=== PATIENT | female | born 1965 | race Caucasian/White ===

== ENCOUNTER 2016-09-01 23:00 | Observation (INO) ==
--- NOTE | 2016-09-02 01:12 | Emergency Department Note ---
Disposition Clinical Impression: Pancreatitis Qualifiers: Chronicity: chronic Pancreatitis type: unspecified pancreatitis type Qualified Code(s): K86.1 - Other chronic pancreatitis Disposition: Admitted As Inpatient Condition: Good Abdominal Pain HPI - General Chief Complaint: ED Abdominal Pain Stated Complaint: VOMITING/DIARRHEA Source: patient Mode of arrival: private vehicle Limitations: no limitations Nursing Notes Reviewed: Yes Vital Signs Reviewed: Yes - History of Present Illness HPI Narrative: Patient presents to the ED complaining of nausea, vomiting, diarrhea and abdominal pain. Symptoms have been intermittent over the past 2 weeks. Abdominal pain is a cramping intermittent fluctuating pain in the epigastrium that radiates to her back. She currently rates as a 7 out of 10. States that she has vomiting and diarrhea after every time she tries to eat or drink. She reports up to 5 episodes of emesis per day. Denies any fever or chills. No urinary symptoms. She is coming in tonight because her blood pressure has been low over the past 2 days and she is now lightheaded and feels dehydrated. She has a history of recurrent pancreatitis ever since having gastric bypass surgery several years ago. She was last hospitalized in June at [facility] for pancreatitis as this is where she had her bariatric surgery and has continued to follow-up. She was seen here the end of July for similar symptoms. Lipase was 119 at that time. She chose outpatient management and had a brief improvement. She has followed up at [facility] with gastroenterology twice since then , on the and . States her last lipase level there was 86 on August 20. She has been referred to a "pancreatic specialist" but does not have an appointment there until December 02. She had her gallbladder removed several years ago. She does not drink any alcohol. She does report history of a fatty liver. Pain Scale: 8 - Related Data Home Medications Medication Instructions Recorded Confirmed Citalopram [CeleXA] 20 mg PO DAILY 11/05/15 09/01/16 LORazepam [Ativan] 0.5 mg PO TID 11/05/15 09/01/16 Tizanidine HCl [Zanaflex] 4 mg PO BID 11/05/15 09/01/16 Albuterol Sulfate [Albuterol 1 puff IH QID 06/23/16 09/01/16 Inhaler] Aripiprazole [Abilify] 5 mg PO DAILY 06/23/16 09/01/16 BuPROPion [Wellbutrin] 300 mg PO DAILY 06/23/16 09/01/16 Clopidogrel [Plavix] 75 mg PO DAILY 06/23/16 09/01/16 Niacin [Niaspan] 1,000 mg PO DAILY 06/23/16 09/01/16 Nitroglycerin [Nitrostat] 0.4 mg SL PRN PRN 06/23/16 09/01/16 Allergies Allergy/AdvReac Type Severity Reaction Status Date / Time acetaminophen [From Fioricet] Allergy Hives Verified 11/05/15 14:41 butalbital [From Fioricet] Allergy Hives Verified 11/05/15 14:41 caffeine [From Fioricet] Allergy Hives Verified 11/05/15 14:41 [place] Allergy Hives Verified 11/05/15 14:41 phenytoin [From Dilantin] Allergy Hives Verified 11/05/15 14:41 Constitutional: Denies: fever, chills, weakness, weight change Eyes: Denies: eye pain, eye discharge, vision change ENT ED: Denies: ear pain, throat pain, dental pain, hearing loss, epistaxis, congestion, dysphagia Cardiovascular: Denies: chest pain, palpitations, dyspnea on exertion, edema, syncope Respiratory: Denies: cough, dyspnea, wheezes, hemoptysis, stridor Gastrointestinal: Reports: as per HPI, abdominal pain, nausea, vomiting. Denies : diarrhea, constipation, hematemesis, melena, hematochezia Genitourinary: Denies: dysuria, frequency, hematuria, discharge Musculoskeletal: Denies: back pain, neck pain, arthralgia, myalgia Integumentary: Denies: rash, abrasion, lesions Neurological: Denies: headache, weakness, numbness, paresthesias, confusion, abnormal gait, vertigo Psychiatric: Denies: anxiety, depression, suicidal thoughts, homicidal thoughts , auditory hallucinations, visual hallucinations Endocrine: Denies: fatigue Hematological/Lymphatic: Denies: easy bleeding, easy bruising Allergic/Immunologic: Denies: facial swelling, urticaria Abdominal Pain PMH - Past Medical History Medical history: Reports: asthma, COPD, coronary artery disease, GERD, hyperlipidemia, hypertension, myocardial infarction, renal disease, TIA, other Female Surgical History: Reports: , cholecystectomy, hysterectomy, JENIFFER/ BSO, Tonsillectomy Psychiatric history: Reports: anxiety, depression - Social History Smoking status: Never smoker Alcohol use: Reports: none Drug use: Reports: none Physical Exam - General Limitations: no limitations General appearance: alert, in no apparent distress - Head Head exam: atraumatic, normocephalic, normal inspection - Eye Eye exam: Present: normal appearance, PERRL, EOMI - ENT ENT exam: normal exam, normal oropharynx, mucous membranes moist - Neck Neck exam: Present: normal inspection, full ROM, trachea midline - Chest Chest inspection: Present: normal inspection, symmetric chest wall rise - Respiratory Respiratory exam: Present: normal lung sounds bilaterally - Cardiovascular Cardiovascular exam: Present: regular rate, normal rhythm, normal heart sounds - Abdominal Exam Abdominal exam: Present: soft, tenderness, normal bowel sounds. Absent: distention, guarding, rebound, rigidity Abdominal tenderness: Present: epigastrium, moderate - Extremities Exam Extremities exam: Present: normal inspection, full ROM. Absent: tenderness, pedal edema - Back Exam Back exam: Present: normal inspection, full ROM. Absent: tenderness, CVA tenderness (R), CVA tenderness (L) - Neurological Exam Neurological exam: Present: alert, oriented X3 - Psychiatric Psychiatric exam: Present: normal affect, normal mood - Skin Skin exam: Present: warm, dry, intact, normal color Course Course Narrative: Patient presents to the ED for two weeks of intermittent epigastric abdominal pain, nausea, vomiting and diarrhea which is consistent with symptoms of her recurrent and apparent acute on chronic pancreatitis after gastric bypass surgery several years ago. She is afebrile and nontoxic in appearance but blood pressure is low. I suspect she is likely dehydrated. We will give IV fluids along with Zofran while laboratory studies are obtained. Low suspicion for any acute surgical process and did not feel that imaging is warranted at this time. - Reevaluation(s) Reevaluation #1: Laboratory studies are notable for hypokalemia at 2.9, likely result of her vomiting and diarrhea. Lipase is slightly elevated at 119. Amylase is normal. Discussed with patient the need for potassium supplement, IV fluids and bowel rest. She is adamant that she does not want to return to [facility] but is amenable to admission here for bowel rest and symptomatic management. I spoke to Dr. Bucio who has accepted the patient for continued treatment of her pancreatitis. We will continue pain medication and IV fluids as well as potassium replacement. Time: 03:11 Vital Signs Temperature 98.8 F 09/01/16 23:01 Pulse Rate 60 09/01/16 23:01 Respiratory Rate 20 09/01/16 23:01 Blood Pressure 98/71 09/01/16 23:01 O2 Sat by Pulse Oximetry 99 09/01/16 23:01 Temperature 98.5 F 09/02/16 04:05 Pulse Rate 63 09/02/16 04:05 Respiratory Rate 14 09/02/16 04:05 Blood Pressure 115/75 09/02/16 04:05 O2 Sat by Pulse Oximetry 100 09/02/16 04:05 Oxygen Delivery Oxygen Delivery Room Air Abdominal Pain - Differential Diagnosis Differential Diagnosis: Likely: abdominal pain non-specific, gastroenteritis, pancreatitis. Unlikely: abdominal pain mimics ectopic , diverticulitis , diverticulosis - Medical Records Medical records reviewed: Yes I reviewed the patient's medical records. - Lab Data Lab results reviewed: Yes I reviewed the patient's lab results. Result diagrams: 09/02/16 01:50 09/02/16 01:50 Lab Results 09/02/16 09/02/16 09/02/16 Range/Units 01:37 01:50 01:50 WBC 9.4 (4.3-11.1) K/mcL RBC 4.20 (3.82-4.97) M/mcL Hgb 12.6 (11.5-15.4) g/dL Hct 36.8 (35.3-44.9) % MCV 87.6 (83.0-100.0) fL MCH 30.0 (28.0-33.3) pg MCHC 34.2 (31.6-35.5) g/dL RDW 12.9 (11.5-14.5) % Plt Count 366 (140-400) K/mcL MPV 9.3 L (9.4-12.4) fL Immature Gran % 0.2 (0-4) % Seg Neutrophils % 64.8 % Lymphocytes % 29.1 % Monocytes % 3.8 % Eosinophils % 1.2 % Basophils % 0.9 % Neutrophils # 6.1 (1.6-8.9) K/mcL Lymphocytes # 2.7 (0.6-4.6) K/mcL Monocytes # 0.4 (0.0-1.3) K/mcL Eosinophils # 0.1 (0.0-0.6) K/mcL Basophils # 0.1 (0.0-0.2) K/mcL Sodium 140 (136-145) mEq/L Potassium 2.9 L (3.5-4.5) mEq/L Chloride 99 (98-109) mEq/L Carbon Dioxide 26 (19-29) mEq/L BUN 12 (7-20) mg/dL Creatinine 0.90 (0.57-1.11) mg/dL Est GFR ( Amer) > 60 (> 60) Est GFR (Non-Af Amer) > 60 (> 60) BUN/Creatinine Ratio 13 (6-26) Glucose 91 (70-99) mg/dL Calculated Osmolality 289 (280-300) Calcium 9.5 (8.6-10.8) mg/dL Total Bilirubin 0.4 (0.2-1.2) mg/dL AST 24 (5-34) Units/L ALT 24 (0-55) Units/L Alkaline Phosphatase 75 (38-126) Units/L Serum Total Protein 7.5 (6.0-8.3) g/dL Albumin 4.4 (3.5-5.0) g/dL Globulin 3.1 (2.4-3.5) g/dL Albumin/Globulin Ratio 1.4 (1.1-2.2) Amylase 73 (25-125) Units/L Lipase 119 H (8-78) Units/L Urine Color Straw (Yellow) Urine Clarity Clear (Clear) Urine pH 5.5 (5.0-8.0) pH Units Ur Specific [place] <= 1.005 L (1.010-1.025) Urine Protein Negative (Neg-Trace) mg/dL Urine Glucose (UA) Normal (Normal) mg/dL Urine Ketones Negative (Negative) mg/dL Urine Blood Negative (Negative) Urine Nitrite Negative (Negative) Urine Bilirubin Negative (Negative) Urine Urobilinogen Normal (Normal) mg/dL Ur Leukocyte Esterase Negative (Negative) Ur Culture Indicated? NO (NO)
[2016-09-02] MEDS ORDERED: Ondansetron 4 MG/2 ML VIAL IV ONE (01:29)
[2016-09-02] MEDS ORDERED: 0.9 % Sodium Chloride 1,000 ML IV ONE (01:29)
[2016-09-02 01:44] LABS: Bilirubin,Urine Negative (Negative); Blood,Urine Negative (Negative); Clarity,Urine Clear (Clear); Color,Urine Straw (Yellow); Glucose,Urine (UA) Normal (Normal); Ketones,Urine Negative (Negative); Leukocyte Esterase,Urine Negative (Negative); Nitrite,Urine Negative (Negative); PH,Urine 5.5 pH Units (5.0-8.0); Protein,Urine Negative (Neg-Trace); Specific Gravity,Urine <= 1.005 (1.010-1.025); Urobilinogen,Urine Normal (Normal)
[2016-09-02 02:11] LABS: Basophils # 0.1 K/mcL (0.0-0.2); Basophils % 0.9 %; Eosinophils # 0.1 K/mcL (0.0-0.6); Eosinophils % 1.2 %; Hematocrit 36.8 % (35.3-44.9); Hemoglobin 12.6 g/dL (11.5-15.4); Immature Granulocytes % 0.2 % (0-4); Lymphocytes # 2.7 K/mcL (0.6-4.6); Lymphocytes % 29.1 %; Mean Corpuscular HGB Conc 34.2 g/dL (31.6-35.5); Mean Corpuscular Volume 87.6 fL (83.0-100.0); Mean Platelet Volume 9.3 fL (9.4-12.4); Monocytes # 0.4 K/mcL (0.0-1.3); Monocytes % 3.8 %; Neutrophils # 6.1 K/mcL (1.6-8.9); Platelet Count 366 K/mcL (140-400); Red Cell Distribution Width 12.9 % (11.5-14.5); Segmented Neutrophils % 64.8 %
[2016-09-02 02:30] LABS: Alanine Aminotransferase 24 Units/L (0-55); Albumin 4.4 g/dL (3.5-5.0); Albumin/Globulin Ratio 1.4 (1.1-2.2); Alkaline Phosphatase 75 Units/L (38-126); Amylase 73 Units/L (25-125); Aspartate Amino Transferase 24 Units/L (5-34); BUN/Creatinine Ratio 13 (6-26); Bilirubin,Total 0.4 mg/dL (0.2-1.2); Blood Urea Nitrogen 12 mg/dL (7-20); Calcium 9.5 mg/dL (8.6-10.8); Carbon Dioxide 26 mEq/L (19-29); Chloride 99 mEq/L (98-109); Globulin 3.1 g/dL (2.4-3.5); Glucose 91 mg/dL (70-99); Lipase 119 Units/L (8-78); Osmolality,Calculated 289 (280-300); Potassium 2.9 mEq/L (3.5-4.5); Sodium 140 mEq/L (136-145); Total Protein 7.5 g/dL (6.0-8.3); eGFR For African Americans > 60 (> 60); eGFR For Non-African Americans > 60 (> 60)
[2016-09-02] MEDS ORDERED: *HR* Morphine 2 MG/ML SYRINGE IVP ONE (03:06)
[2016-09-02] MEDS ORDERED: 0.9 % Sodium Chloride 1,000 ML IVC SCH ×2 (03:15→04:20)
[2016-09-02] MEDS ORDERED: *HR* Morphine 2 MG/ML SYRINGE IVP PRN ×2 (03:33→04:20)
[2016-09-02] MEDS ORDERED: Naloxone 0.4 MG/ML INJ IVP PRN ×2 (03:33→04:20)
[2016-09-02] MEDS ORDERED: Ondansetron 4 MG/2 ML VIAL IVP PRN ×3 (03:33→15:54)
[2016-09-02] MEDS: *HR* Morphine 2 MG/ML SYRINGE IVP PRN ×4 (05:28→18:59)
[2016-09-02] MEDS: *HR* Promethazine 25 MG/ML VIAL IVP PRN ×3 (05:28→18:59)
--- NOTE | 2016-09-02 15:45 | Internal Med History&Physical ---
Date of Encounter: 09/02/16 Time of Encounter: 15:05 Assessment and Plan (1) Abdominal pain with vomiting Current visit: Yes Status: Acute The etiology is not obvious. We will check stool for H. pylori. We will order MRI of the abdomen and CA 19-9. (2) Hypokalemia Current visit: Yes Status: Acute Likely secondary to vomiting. We will give supplemental potassium and monitor labs. Internal Medicine - H&P: HPI Chief complaint: Vomiting and abdominal pain Admitted From: Home Plans for Post Hospital Care: Home History of present illness: Ms. Goodrich is a 50 year old female who came to emergency room stating she had onset 5-6 days earlier of vomiting and epigastric abdominal pain that radiated to her back. She had multiple episodes of vomiting but denies hematemesis. She was evaluated in emergency room and admitted to [facility] floor for ongoing care needs. She states she has had multiple similar episodes since January 2016, occurring on average every 2-3 weeks and persisting for 5-6 days. She was hospitalized at [facility] June 2016 for this problem. She reports an EGD showed no significant pathology. She reports having a CT of the abdomen at [facility] without significant abnormalities found. She was told she had "pancreatitis" at [facility] but no specific etiology was mentioned. She has also been diagnosed with esophageal dysmotility disorder. She had remote cholecystectomy. She has NAFLD and states she drank alcohol heavily in the past but has not had a drink for 3 years. She had gastric bypass surgery July 2014 with weight decreasing from 270 to 140. She reports she is still losing weight. She was told she had a bile leak after her gastric bypass surgery but no surgical correction was needed. She had a colonoscopy at [facility] 2014 with polyps found. She had polypectomy performed. Past Med Surg Social Fam HX - Past Medical History Medical history: asthma, COPD, coronary artery disease, GERD, hyperlipidemia, hypertension, myocardial infarction, renal disease, TIA, other Psychiatric history: anxiety, depression - Past Surgical History Surgical History: , cholecystectomy, hysterectomy, orthopedic, other, other - Social History Smoking Status: Never smoker Smokeless Tobacco Status: Yes Alcohol use: none Drug use: none - Family History Mother Living Status: Age at : 60 Cause of : Esophageal cancer Hx Family Cardiac Disorders: No Hx Family Respiratory Disorders: Yes (asthma) Hx Family Cancer: Yes (esophageal) Hx Family GI Disorders: No Hx Family Genitourinary Disorders: No Hx Family Endocrine Disorder: No Hx Family Musculoskeletal Disorders: No Hx Family Neuromuscular Disorders: No Hx Family Neurologic Disorders: No Hx Family HEENT Disorders: No Hx Family Autoimmune Disorders: No Hx Family Reproductive Disorders: No Hx Family Psychosocial Disorders: Yes (anxiety and depression) Hx Family Medical Disorders: No Internal Medicine - H&P: Meds Citalopram [CeleXA] 20 mg PO DAILY 11/05/15 [History] LORazepam [Ativan] 0.5 mg PO TID 11/05/15 [History] Tizanidine HCl [Zanaflex] 4 mg PO BID 11/05/15 [History] Albuterol Sulfate [Albuterol Inhaler] 1 puff IH QID 06/23/16 [History] Aripiprazole [Abilify] 5 mg PO DAILY 06/23/16 [History] BuPROPion [Wellbutrin] 300 mg PO DAILY 06/23/16 [History] Clopidogrel [Plavix] 75 mg PO DAILY 06/23/16 [History] Niacin [Niaspan] 1,000 mg PO DAILY 06/23/16 [History] Nitroglycerin [Nitrostat] 0.4 mg SL PRN PRN 06/23/16 [History] Allergies acetaminophen [From Fioricet] Allergy (Verified 11/05/15 14:41) Hives butalbital [From Fioricet] Allergy (Verified 11/05/15 14:41) Hives caffeine [From Fioricet] Allergy (Verified 11/05/15 14:41) Hives [place] Allergy (Verified 11/05/15 14:41) Hives phenytoin [From Dilantin] Allergy (Verified 11/05/15 14:41) Hives All Systems PM: A 10-system review of systems was performed and is negative for pertinent findings except as documented above in the HPI. Review of systems: Gen.: She has had weight decline as per above Cardiovascular: She claims she had myocardial infarction in 2008. She claims a stress test was done afterward which showed no significant ischemia and no intervention was done. She denies hypertension heart failure DVT or pulmonary embolus Respiratory: She smoked minimally is an early adult and has no known chronic lung disease GI: As per history of present illness : She reports right kidney atrophy and chronic kidney disease stage III. She denies other kidney or bladder disorders. Neurologic: She claims she had a stroke 2004 with right leg weakness. She reports the weakness has completely resolved now. She has had no further large distribution strokes. She states she had childhood seizures Endocrine: She has history of hyperlipidemia. She has history of DM 2 but she does not take medication since she had significant weight loss. She denies thyroid disease Hematology/oncology: She denies blood disorders cancers or anemia Psychiatric: She has anxiety and depression but denies other mental health issues [place] skeletal: She denies arthritis gout or other bone joint or muscle disorders. - Constitutional Vitals: Temp Pulse Resp BP Pulse Ox 97.8 F 63 16 87/44 99 09/02/16 11:26 09/02/16 11:26 09/02/16 11:26 09/02/16 11:09/02/16 11:26 Exam: General: She is well-developed well-nourished female who appears in no severe distress at present time. HEENT: Head is atraumatic and normocephalic. Eyes: EOMI. There is no scleral icterus. Mouth: Mucosa is moist. Neck: Supple and nontender. There is no thyromegaly or adenopathy noted. Heart: Regular without murmurs gallops or ectopics. Lungs: No wheezes or crackles are heard. Abdomen: There is mild tenderness to mild to moderate palpation in the mid abdominal area. No masses or guarding are noted. Extremities: There is no cyanosis edema or clubbing noted. Dorsalis pedis and posttibial pulses are 1-2 over 2 bilaterally. Neurologic: Mental status: She is talkative and a good historian. Cranial nerves: Smile is symmetric. Forehead wrinkles bilaterally. Tongue protrudes midline. EOMI. Motor: There is no pronator drift. Cerebellar: Finger to nose intact bilaterally. Skin: Warm and dry Internal Med - H&P Results - Labs CBC & Chem 7: 09/02/16 01:50 09/02/16 01:50 - VTE Reasons for not Prescribing Prophylaxis: Treatment not Indicated - Low risk for VTE
[2016-09-02] MEDS: 0.45 % Sodium Chloride w/KCl 20 MEQ/1,000 ML MLS IVC SCH (15:57)
[2016-09-02] MEDS: *HR* HYDROmorphone (PF) 1 MG/ML SYRINGE IVP PRN (22:11)
[2016-09-03] MEDS: *HR* HYDROmorphone (PF) 1 MG/ML SYRINGE IVP PRN ×2 (01:33→08:39)
[2016-09-03] MEDS: 0.45 % Sodium Chloride w/KCl 20 MEQ/1,000 ML MLS IVC SCH (04:05)
[2016-09-03 07:07] LABS: Alanine Aminotransferase 92 Units/L (0-55); Albumin 3.3 g/dL (3.5-5.0); Albumin/Globulin Ratio 1.4 (1.1-2.2); Alkaline Phosphatase 81 Units/L (38-126); Aspartate Amino Transferase 76 Units/L (5-34); BUN/Creatinine Ratio 9 (6-26); Bilirubin,Total 0.5 mg/dL (0.2-1.2); Blood Urea Nitrogen 7 mg/dL (7-20); Calcium 8.4 mg/dL (8.6-10.8); Carbon Dioxide 25 mEq/L (19-29); Chloride 108 mEq/L (98-109); Chol/HDL Ratio 3.5 (0-4.9); Cholesterol 163 mg/dL (< 200); Globulin 2.4 g/dL (2.4-3.5); Glucose 108 mg/dL (70-99); HDL Cholesterol 46 mg/dL (40-59); LDL Cholesterol,Calculated 94 mg/dL (0-99); Magnesium 2.2 mg/dL (1.6-2.6); Osmolality,Calculated 291 (280-300); Potassium 4.1 mEq/L (3.5-4.5); Sodium 141 mEq/L (136-145); Total Protein 5.7 g/dL (6.0-8.3); Triglycerides 117 mg/dL (< 150); eGFR For African Americans > 60 (> 60); eGFR For Non-African Americans > 60 (> 60)
[2016-09-03 07:50] VITALS: BP 121/83
--- NOTE | 2016-09-03 10:10 | Discharge Summary ---
Date of Encounter: 09/03/16 Time of Encounter: 10:00 - Discharge Diagnosis (1) Abdominal pain with vomiting Priority: Primary Status: Acute (2) Hypokalemia Priority: Secondary Status: Resolved - Discharge Medications Home Medications: Citalopram [CeleXA] 20 mg PO DAILY 11/05/15 [History] LORazepam [Ativan] 0.5 mg PO TID 11/05/15 [History] Tizanidine HCl [Zanaflex] 4 mg PO BID 11/05/15 [History] Albuterol Sulfate [Albuterol Inhaler] 1 puff IH QID 06/23/16 [History] Aripiprazole [Abilify] 5 mg PO DAILY 06/23/16 [History] BuPROPion [Wellbutrin] 300 mg PO DAILY 06/23/16 [History] Clopidogrel [Plavix] 75 mg PO DAILY 06/23/16 [History] Niacin [Niaspan] 1,000 mg PO DAILY 06/23/16 [History] Nitroglycerin [Nitrostat] 0.4 mg SL PRN PRN 06/23/16 [History] Allergies/Adverse Reactions: Allergies acetaminophen [From Fioricet] Allergy (Verified 11/05/15 14:41) Hives butalbital [From Fioricet] Allergy (Verified 11/05/15 14:41) Hives caffeine [From Fioricet] Allergy (Verified 11/05/15 14:41) Hives [place] Allergy (Verified 11/05/15 14:41) Hives phenytoin [From Dilantin] Allergy (Verified 11/05/15 14:41) Hives Procedures/tests Complete & Pending: Procedures Performed prior 72 hours Category Date Time Status MR abdomen wo/w con [MR] Routine MRI 09/02/16 15:30 Completed Date of admission: 09/02/16 03:16 Primary care physician: Sameera Crow [employer] - Patient Status Disposition: Home, Self-Care Condition: Good Functional capacity at discharge: independent ambulation Overall status at discharge: patient is progressing back to baseline - Discharge Instructions Follow Up With: Sameera Crow [Advanced Practice Nurse] - 1 week Forms: ED Satisfaction Letter, Work/School Release - Diet and Activity Activity: resume usual activities as tolerated Diet: advance to your usual diet Hospital course: Ms. Goodrich is a 50 year old female who came to emergency room stating she had onset 5-6 days earlier of vomiting and epigastric abdominal pain that radiated to her back. She had multiple episodes of vomiting but denies hematemesis. She was evaluated in emergency room and admitted to [facility] for ongoing care needs. Initial orders were written by the emergency room physician. I saw her on September 02 and performed a history and physical. I ordered abdominal MRI to further evaluate. No significant pathology was seen. A CA-19-9 was ordered with results pending at time of this dictation. Stool for H. pylori antigen was ordered but was not collected since she had no BM during hospital stay. The etiology of her recurrent abdominal pain and vomiting was not determined. IV fluids were given with supplement potassium. Her potassium was normal at 4.1 on the day of discharge. On September 03 she felt improved and stable for discharge home. She had been able tolerate clear liquids without vomiting. She will follow with her PCP Sameera Crow CNP tomorrow as scheduled. - Time Spent with Patient Total time spent providing and/or coordinating discharge services: - Constitutional Vitals: Temp Pulse Resp BP Pulse Ox 98.7 F 55 16 121/83 100 09/03/16 07:49 09/03/16 07:49 09/03/16 07:49 09/03/16 07:49 09/03/16 07:49 - VTE Reasons for not Prescribing Prophylaxis: Treatment not Indicated - Low risk for VTE
== END 2016-09-03 10:36 | disposition home or self-care (01) ==
LOC: INPPIK 23:00 → EMEROOPIK 23:00 → INPPIK 09-02 03:29
PROVIDERS: ADMIT Internal Medicine; ATTEND Internal Medicine

== ENCOUNTER 2017-04-17 02:14 | Inpatient (IN) ==
--- NOTE | 2017-04-17 02:22 | Emergency Department Note ---
Disposition Clinical Impression: Pancreatitis Qualifiers: Chronicity: acute Pancreatitis type: unspecified pancreatitis type Acute pancreatitis complication: no infection or necrosis Qualified Code(s): K85.90 - Acute pancreatitis without necrosis or infection, unspecified Disposition: Admitted As Inpatient Condition: Good Time of Disposition: 03:30 Abdominal Pain HPI - General Chief Complaint: ED Abdominal Pain Stated Complaint: RUQ abdominal pain, N&V, diarrhea Time Seen by Provider: 04/17/17 02:20 Source: patient Mode of arrival: ambulatory Limitations: no limitations Nursing Notes Reviewed: Yes Vital Signs Reviewed: Yes - History of Present Illness HPI Narrative: Patient complains of abdominal pain for the past 2 days. She has medicine for pain and nausea, bu she keeps throwing it up. She says this feels like her pancreatitis. She has not had a fever. She denies any urinary symptoms or diarrhea Pt Subjective Complaint: abdominal pain Onset (ago): day(s) (2) Consistency: constant Location: RUQ, epigastric Pain Severity: moderate Quality: cramping, stabbing Radiation: none Migration to: no migration Improves with: nothing Worsens with: nothing Associated symptoms: Reports: nausea, vomiting - Related Data Home Medications Medication Instructions Recorded Confirmed Tizanidine HCl [Zanaflex] 4 mg PO BID 11/05/15 03/08/17 Albuterol Sulfate [Albuterol 1 puff IH QID 06/23/16 03/08/17 Inhaler] BuPROPion [Wellbutrin] 300 mg PO DAILY 06/23/16 03/08/17 Clopidogrel [Plavix] 75 mg PO DAILY 06/23/16 03/08/17 Niacin [Niaspan] 1,000 mg PO DAILY 06/23/16 03/08/17 Nitroglycerin [Nitrostat] 0.4 mg SL PRN PRN 06/23/16 03/08/17 Previous Rx's Medication Instructions Recorded Promethazine [Phenergan] 25 mg RC Q6HR #30 supp.rect 11/03/16 Lansoprazole [Prevacid] 30 mg PO DAILY #20 tab.rap.dr 11/15/16 HYDROcodone/Acet 5/325 mg [[place] 1 tab PO Q6H PRN #14 tab 02/21/17 5-325 mg] Ondansetron ODT [Zofran ODT] 4 mg SL Q6HR #24 tab.rapdis 03/08/17 Promethazine Syrup [Phenergan 25 mg PO Q8HR #150 mls 03/08/17 Syrup] Promethazine [Phenergan] 25 mg PO Q6HR #20 tablet 03/08/17 Allergies Allergy/AdvReac Type Severity Reaction Status Date / Time acetaminophen [From Fioricet] Allergy Hives Verified 11/05/15 14:41 butalbital [From Fioricet] Allergy Hives Verified 11/05/15 14:41 caffeine [From Fioricet] Allergy Hives Verified 11/05/15 14:41 [place] Allergy Hives Verified 11/05/15 14:41 phenytoin [From Dilantin] Allergy Hives Verified 11/05/15 14:41 All systems ED: reviewed and negative except as stated. Review of Systems: As Per HPI Constitutional: Denies: fever, chills, weakness, weight change Eyes: Denies: eye pain, eye discharge, vision change ENT ED: Denies: ear pain, throat pain, dental pain, hearing loss, epistaxis, congestion, dysphagia Cardiovascular: Denies: chest pain, palpitations, dyspnea on exertion, edema, syncope Respiratory: Denies: cough, dyspnea, wheezes, hemoptysis, stridor Gastrointestinal: Reports: abdominal pain, nausea Genitourinary: Denies: dysuria, frequency, hematuria, discharge Musculoskeletal: Denies: back pain, neck pain, arthralgia, myalgia Integumentary: Denies: rash, abrasion, lesions Neurological: Denies: headache, weakness, numbness, paresthesias, confusion, abnormal gait, vertigo Psychiatric: Denies: anxiety, depression, suicidal thoughts, homicidal thoughts , auditory hallucinations, visual hallucinations Endocrine: Reports: as per HPI Hematological/Lymphatic: Reports: as per HPI Allergic/Immunologic: Denies: facial swelling, urticaria Abdominal Pain PMH - Past Medical History Medical history: Reports: asthma, COPD, coronary artery disease, GERD, hyperlipidemia, myocardial infarction, renal disease, seizures, TIA, other Female Surgical History: Reports: , cholecystectomy, hysterectomy, JENIFFER/ BSO, Tonsillectomy, other Psychiatric history: Reports: anxiety, depression - Social History Smoking status: Never smoker Alcohol use: Reports: none Drug use: Reports: none Physical Exam - General Limitations: no limitations General appearance: alert, in no apparent distress - Head Head exam: atraumatic, normocephalic, normal inspection - Eye Eye exam: Present: normal appearance, PERRL, EOMI - ENT ENT exam: normal exam, normal oropharynx, mucous membranes moist - Neck Neck exam: Present: normal inspection, full ROM, trachea midline - Chest Chest inspection: Present: normal inspection, symmetric chest wall rise - Respiratory Respiratory exam: Present: normal lung sounds bilaterally - Cardiovascular Cardiovascular exam: Present: regular rate, normal rhythm, normal heart sounds - Abdominal Exam Abdominal exam: Present: tenderness, normal bowel sounds - Rectal Exam Rectal exam: Present: deferred - Extremities Exam Extremities exam: Present: normal inspection - Back Exam Back exam: Present: normal inspection - Neurological Exam Neurological exam: Present: alert, oriented X3 - Psychiatric Psychiatric exam: Present: normal affect, normal mood - Skin Skin exam: Present: warm, dry, intact Course Vital Signs Temperature 98.3 F 04/17/17 02:16 Pulse Rate 82 04/17/17 02:16 Respiratory Rate 16 04/17/17 02:16 Blood Pressure 122/82 04/17/17 02:16 O2 Sat by Pulse Oximetry 100 04/17/17 02:16 Temperature 100.0 F H 04/19/17 06:46 Pulse Rate 70 04/19/17 06:46 Respiratory Rate 16 04/19/17 06:46 Blood Pressure 105/74 04/19/17 06:46 O2 Sat by Pulse Oximetry 99 04/19/17 06:46 Oxygen Delivery Oxygen Delivery Room Air Abdominal Pain - MDM Narrative Medical decision making narrative: discussed case with Dr. Bucio and he accepts admit - Lab Data Lab results reviewed: Yes I reviewed the patient's lab results. Result diagrams: 04/19/17 04:59 04/19/17 04:59 Lab Results 04/17/17 04/17/17 04/17/17 Range/Units 02:20 02:20 02:20 WBC 9.1 (4.3-11.1) K/mcL RBC 4.19 (3.82-4.97) M/mcL Hgb 12.2 (11.5-15.4) g/dL Hct 36.6 (35.3-44.9) % MCV 87.4 (83.0-100.0) fL MCH 29.1 (28.0-33.3) pg MCHC 33.3 (31.6-35.5) g/dL RDW 13.7 (11.5-14.5) % Plt Count 363 (140-400) K/mcL MPV 9.2 L (9.4-12.4) fL Immature Gran % 0.1 (0-4) % Seg Neutrophils % 53.1 % Lymphocytes % 38.0 % Monocytes % 6.3 % Eosinophils % 1.7 % Basophils % 0.8 % Neutrophils # 4.8 (1.6-8.9) K/mcL Lymphocytes # 3.4 (0.6-4.6) K/mcL Monocytes # 0.6 (0.0-1.3) K/mcL Eosinophils # 0.2 (0.0-0.6) K/mcL Basophils # 0.1 (0.0-0.2) K/mcL Sodium 139 (136-145) mEq/L Potassium 3.0 L (3.5-4.5) mEq/L Chloride 103 (98-109) mEq/L Carbon Dioxide 25 (19-29) mEq/L BUN 10 (7-20) mg/dL Creatinine 0.99 (0.57-1.11) mg/dL Est GFR ( Amer) > 60 (> 60) Est GFR (Non-Af Amer) 60 (> 60) BUN/Creatinine Ratio 10 (6-26) Glucose 82 (70-99) mg/dL POC Glucose (58-89) Calculated Osmolality 286 (280-300) Calcium 9.8 (8.6-10.8) mg/dL Magnesium (1.6-2.6) mg/dL Total Bilirubin 0.2 (0.2-1.2) mg/dL AST 46 H (5-34) Units/L ALT 46 (0-55) Units/L Alkaline Phosphatase 106 (38-126) Units/L Serum Total Protein 8.2 (6.0-8.3) g/dL Albumin 4.2 (3.5-5.0) g/dL Globulin 4.0 H (2.4-3.5) g/dL Albumin/Globulin Ratio 1.1 (1.1-2.2) Amylase 335 H (25-125) Units/L Lipase > 1200 H (8-78) Units/L Urine Color Light Yellow (Yellow) Urine Clarity Clear (Clear) Urine pH 6.5 (5.0-8.0) pH Units Ur Specific [place] 1.010 (1.010-1.025) Urine Protein Negative (Neg-Trace) mg/dL Urine Glucose (UA) Normal (Normal) mg/dL Urine Ketones Negative (Negative) mg/dL Urine Blood Negative (Negative) Urine Nitrite Negative (Negative) Urine Bilirubin Negative (Negative) Urine Urobilinogen Normal (Normal) mg/dL Ur Leukocyte Esterase Trace H (Negative) Urine Microscopic RBC 0-3 (0-3) per hpf Urine Microscopic WBC 3-5 H (0-3) per hpf Ur Squamous Epith Cells Many H (None-Few) per lpf Urine Bacteria Few (None-Few) per hpf Ur Culture Indicated? YES A (NO) 04/17/17 04/17/17 Range/Units 07:13 13:35 WBC (4.3-11.1) K/mcL RBC (3.82-4.97) M/mcL Hgb (11.5-15.4) g/dL Hct (35.3-44.9) % MCV (83.0-100.0) fL MCH (28.0-33.3) pg MCHC (31.6-35.5) g/dL RDW (11.5-14.5) % Plt Count (140-400) K/mcL MPV (9.4-12.4) fL Immature Gran % (0-4) % Seg Neutrophils % % Lymphocytes % % Monocytes % % Eosinophils % % Basophils % % Neutrophils # (1.6-8.9) K/mcL Lymphocytes # (0.6-4.6) K/mcL Monocytes # (0.0-1.3) K/mcL Eosinophils # (0.0-0.6) K/mcL Basophils # (0.0-0.2) K/mcL Sodium (136-145) mEq/L Potassium (3.5-4.5) mEq/L Chloride (98-109) mEq/L Carbon Dioxide (19-29) mEq/L BUN (7-20) mg/dL Creatinine (0.57-1.11) mg/dL Est GFR ( Amer) (> 60) Est GFR (Non-Af Amer) (> 60) BUN/Creatinine Ratio (6-26) Glucose (70-99) mg/dL POC Glucose 100 H (58-89) Calculated Osmolality (280-300) Calcium (8.6-10.8) mg/dL Magnesium 2.1 (1.6-2.6) mg/dL Total Bilirubin (0.2-1.2) mg/dL AST (5-34) Units/L ALT (0-55) Units/L Alkaline Phosphatase (38-126) Units/L Serum Total Protein (6.0-8.3) g/dL Albumin (3.5-5.0) g/dL Globulin (2.4-3.5) g/dL Albumin/Globulin Ratio (1.1-2.2) Amylase (25-125) Units/L Lipase (8-78) Units/L Urine Color (Yellow) Urine Clarity (Clear) Urine pH (5.0-8.0) pH Units Ur Specific [place] (1.010-1.025) Urine Protein (Neg-Trace) mg/dL Urine Glucose (UA) (Normal) mg/dL Urine Ketones (Negative) mg/dL Urine Blood (Negative) Urine Nitrite (Negative) Urine Bilirubin (Negative) Urine Urobilinogen (Normal) mg/dL Ur Leukocyte Esterase (Negative) Urine Microscopic RBC (0-3) per hpf Urine Microscopic WBC (0-3) per hpf Ur Squamous Epith Cells (None-Few) per lpf Urine Bacteria (None-Few) per hpf Ur Culture Indicated? (NO) - Radiology Data Radiology results reviewed: Yes I reviewed the patient's radiology results.
[2017-04-17] MEDS ORDERED: Ondansetron 4 MG/2 ML VIAL IVP ONE ×2 (02:25→03:10)
[2017-04-17] MEDS ORDERED: *HR* HYDROmorphone (PF) 1 MG/ML SYRINGE IVP ONE ×3 (02:25→03:10)
[2017-04-17] MEDS ORDERED: 0.9 % Sodium Chloride 1,000 ML IVC SCH (02:30)
[2017-04-17 02:35] LABS: Basophils # 0.1 K/mcL (0.0-0.2); Basophils % 0.8 %; Eosinophils # 0.2 K/mcL (0.0-0.6); Eosinophils % 1.7 %; Hematocrit 36.6 % (35.3-44.9); Hemoglobin 12.2 g/dL (11.5-15.4); Immature Granulocytes % 0.1 % (0-4); Lymphocytes # 3.4 K/mcL (0.6-4.6); Mean Corpuscular HGB Conc 33.3 g/dL (31.6-35.5); Mean Corpuscular Hemoglobin 29.1 pg (28.0-33.3); Mean Corpuscular Volume 87.4 fL (83.0-100.0); Mean Platelet Volume 9.2 fL (9.4-12.4); Monocytes # 0.6 K/mcL (0.0-1.3); Monocytes % 6.3 %; Neutrophils # 4.8 K/mcL (1.6-8.9); Platelet Count 363 K/mcL (140-400); Red Blood Count 4.19 M/mcL (3.82-4.97); Red Cell Distribution Width 13.7 % (11.5-14.5); Segmented Neutrophils % 53.1 %
[2017-04-17 02:43] LABS: Bilirubin,Urine Negative (Negative); Blood,Urine Negative (Negative); Clarity,Urine Clear (Clear); Glucose,Urine (UA) Normal (Normal); Ketones,Urine Negative (Negative); Leukocyte Esterase,Urine Trace (Negative); Nitrite,Urine Negative (Negative); PH,Urine 6.5 pH Units (5.0-8.0); Protein,Urine Negative (Neg-Trace); Urobilinogen,Urine Normal (Normal)
[2017-04-17 02:44] LABS: Color,Urine Light Yellow (Yellow)
[2017-04-17 02:52] LABS: RBC,Urine 0-3 per hpf (0-3)
[2017-04-17 02:53] LABS: Alanine Aminotransferase 46 Units/L (0-55); Albumin 4.2 g/dL (3.5-5.0); Albumin/Globulin Ratio 1.1 (1.1-2.2); Alkaline Phosphatase 106 Units/L (38-126); Amylase 335 Units/L (25-125); Aspartate Amino Transferase 46 Units/L (5-34); BUN/Creatinine Ratio 10 (6-26); Bacteria,Urine Few per hpf (None-Few); Bilirubin,Total 0.2 mg/dL (0.2-1.2); Blood Urea Nitrogen 10 mg/dL (7-20); Calcium 9.8 mg/dL (8.6-10.8); Carbon Dioxide 25 mEq/L (19-29); Chloride 103 mEq/L (98-109); Glucose 82 mg/dL (70-99); Lipase > 1200 Units/L (8-78); Osmolality,Calculated 286 (280-300); Sodium 139 mEq/L (136-145); Squamous Epithelial Cell,Urine Many per lpf (None-Few); Total Protein 8.2 g/dL (6.0-8.3); eGFR For African Americans > 60 (> 60); eGFR For Non-African Americans 60 (> 60)
[2017-04-17] MEDS: *HR* Promethazine 25 MG/ML VIAL IVP PRN ×5 (04:12→21:58)
[2017-04-17] MEDS: *HR* HYDROmorphone (PF) 1 MG/ML SYRINGE IVP PRN ×8 (04:19→21:59)
[2017-04-17] MEDS ORDERED: Ondansetron 4 MG/2 ML VIAL IVP PRN (06:13)
[2017-04-17] MEDS: 0.45 % Sodium Chloride w/KCl 20 MEQ/1,000 ML MLS IVC SCH ×2 (07:11→17:06)
--- NOTE | 2017-04-17 11:49 | Internal Med History&Physical ---
Date of Encounter: 04/17/17 Time of Encounter: 11:15 Assessment and Plan (1) Pancreatitis Current visit: Yes Status: Acute Etiology not obvious. She feels significantly improved. Will continue with IV fluids and give antiemetics and analgesics when necessary Qualifiers: Chronicity: acute Pancreatitis type: unspecified pancreatitis type Acute pancreatitis complication: no infection or necrosis Qualified Code(s): K85.90 - Acute pancreatitis without necrosis or infection, unspecified (2) Hypokalemia Current visit: No Status: Acute Probably secondary to vomiting and diarrhea. Continue IV fluids with supplemental potassium. We will advance diet as tolerated. Recheck labs in a.. Internal Medicine - H&P: HPI Chief complaint: Abdominal pain, vomiting, diarrhea Admitted From: Home Plans for Post Hospital Care: Home History of present illness: Ms. Goodrich is a 51 year old female who came to emergency room stating she had onset of vomiting and diarrhea with right upper quadrant and epigastric discomfort the evening of April 14. She had approximately 5 episodes of vomiting and diarrhea over the next 2 days. She came to emergency room and was evaluated and found to have hypokalemia and elevated lipase and amylase. She was admitted to [facility] floor for ongoing care needs. She was hospitalized at [facility] August 2016 with similar complaints. An MRI of the abdomen was done which showed no significant pathology. CA 19-9 antigen returned normal. She reports multiple similar episodes since January 2016. She was hospitalized at [facility] June 2016 and reports EGD showed no pathology. She was told she had "pancreatitis" but no etiology was mentioned. She has been diagnosed with esophageal motility disorder. She has had cholecystectomy. 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 She reports no alcohol intake since approximately 2013. She had GBS July 2014 with weight decreasing from 270 to 140. Her weight is been stable since August 2016 hospitalization. She had colonoscopy 2014 with polypectomy. Past Med Surg Social Fam HX - Past Medical History Medical history: asthma, COPD, coronary artery disease, GERD, hyperlipidemia, myocardial infarction, renal disease, seizures, TIA, other Psychiatric history: anxiety, depression - Past Surgical History Surgical History: , cholecystectomy, hysterectomy - Social History Smoking Status: Never smoker Smokeless Tobacco Status: No Alcohol use: none Drug use: none - Family History Mother Living Status: Hx Family Cardiac Disorders: No Hx Family Respiratory Disorders: Yes (asthma) Hx Family Cancer: Yes (esophageal) Hx Family GI Disorders: No Hx Family Endocrine Disorder: No Hx Family Neuromuscular Disorders: No Hx Family Neurologic Disorders: No Hx Family HEENT Disorders: No Hx Family Autoimmune Disorders: No Internal Medicine - H&P: Meds Tizanidine HCl [Zanaflex] 4 mg PO BID 11/05/15 [History] Albuterol Sulfate [Albuterol Inhaler] 1 puff IH QID 06/23/16 [History] BuPROPion [Wellbutrin] 300 mg PO DAILY 06/23/16 [History] Clopidogrel [Plavix] 75 mg PO DAILY 06/23/16 [History] Niacin [Niaspan] 1,000 mg PO DAILY 06/23/16 [History] Nitroglycerin [Nitrostat] 0.4 mg SL PRN PRN 06/23/16 [History] Promethazine [Phenergan] 25 mg RC Q6HR #30 supp.rect 11/03/16 [Rx] Lansoprazole [Prevacid] 30 mg PO DAILY #20 tab.rap. 11/15/16 [Rx] HYDROcodone/Acet 5/325 mg [[place] 5-325 mg] 1 tab PO Q6H PRN #14 tab 02/21/17 [Rx ] Ondansetron ODT [Zofran ODT] 4 mg SL Q6HR #24 tab.rapdis 03/08/17 [Rx] Promethazine Syrup [Phenergan Syrup] 25 mg PO Q8HR #150 mls 03/08/17 [Rx] Promethazine [Phenergan] 25 mg PO Q6HR #20 tablet 03/08/17 [Rx] 3 Allergy/AdvReac Type Severity Reaction Status Date / Time acetaminophen [From Fioricet] Allergy Hives Verified 11/05/15 14:41 butalbital [From Fioricet] Allergy Hives Verified 11/05/15 14:41 caffeine [From Fioricet] Allergy Hives Verified 11/05/15 14:41 [place] Allergy Hives Verified 11/05/15 14:41 phenytoin [From Dilantin] Allergy Hives Verified 11/05/15 14:41 All Systems PM: A 10-system review of systems was performed and is negative for pertinent findings except as documented above in the HPI. Review of systems: Review of systems from her August 2016 hospitalization were reviewed and revised as below. Gen.: Her weight has been stable since August 2016 hospitalization Cardiovascular: She claims she had myocardial infarction in 2008. She claims a stress test was done afterward which showed no significant ischemia and no intervention was done. She denies hypertension heart failure DVT or pulmonary embolus Respiratory: She smoked minimally is an early adult and has no known chronic lung disease GI: As per history of present illness : She reports right kidney atrophy and chronic kidney disease stage III. She denies other kidney or bladder disorders. Neurologic: She claims she had a stroke 2004 with right leg weakness. She reports the weakness has completely resolved now. She has had no further large distribution strokes. She states she had childhood seizures Endocrine: She has history of hyperlipidemia. She has history of DM 2 but she does not take medication since she had significant weight loss. She denies thyroid disease Hematology/oncology: She denies blood disorders cancers or anemia Psychiatric: She has anxiety and depression but denies other mental health issues [place] skeletal: She denies arthritis gout or other bone joint or muscle disorders. - Constitutional Vitals: Temp Pulse Resp BP Pulse Ox 98.4 F 76 16 107/72 99 04/17/17 10:32 04/17/17 10:32 04/17/17 10:32 04/17/17 10:32 04/17/17 10:32 Exam: Gen.: She is a well-developed well-nourished female who appears in mild distress at present time. HEENT: Head is atraumatic and normocephalic. Eyes: EOMI. There is no scleral icterus. Mouth: Mucosa is moist. Neck: Supple and nontender. There is no thyromegaly or adenopathy noted. Heart: Regular without murmurs gallops or ectopics Lungs: No wheezes or crackles are heard. Abdomen: Bowel sounds are present but diminished. There is mild discomfort in the right upper quadrant and epigastric area to deep palpation. No masses or guarding are noted. Extremities: There is no cyanosis edema or clubbing noted. Dorsalis pedis and posterior tibial pulses are 1-2 over 2 bilaterally. Neurologic: Mental status: She is talkative and a good historian. Cranial nerves: Smile is symmetric. Forehead wrinkles bilaterally. Tongue protrudes midline. EOMI. Motor: There is no pronator drift. Cerebellar: Finger to nose is intact bilaterally. Skin: Warm and dry Internal Med - H&P Results - Labs CBC & Chem 7: 04/17/17 02:20 04/17/17 02:20
[2017-04-17] MEDS: Ondansetron 4 MG/2 ML VIAL IVP PRN ×2 (14:39→19:43)
[2017-04-18] MEDS: Ondansetron 4 MG/2 ML VIAL IVP PRN ×3 (02:52→21:30)
[2017-04-18] MEDS: 0.45 % Sodium Chloride w/KCl 20 MEQ/1,000 ML MLS IVC SCH ×3 (02:52→18:50)
[2017-04-18] MEDS: *HR* HYDROmorphone (PF) 1 MG/ML SYRINGE IVP PRN ×9 (02:52→23:28)
[2017-04-18 05:27] LABS: Basophils % 0.7 %; Eosinophils # 0.2 K/mcL (0.0-0.6); Eosinophils % 4.3 %; Hematocrit 32.7 % (35.3-44.9); Hemoglobin 10.9 g/dL (11.5-15.4); Immature Granulocytes % 0.2 % (0-4); Lymphocytes # 1.6 K/mcL (0.6-4.6); Lymphocytes % 28.9 %; Mean Corpuscular HGB Conc 33.3 g/dL (31.6-35.5); Mean Corpuscular Hemoglobin 29.5 pg (28.0-33.3); Mean Corpuscular Volume 88.6 fL (83.0-100.0); Mean Platelet Volume 9.3 fL (9.4-12.4); Monocytes # 0.2 K/mcL (0.0-1.3); Monocytes % 4.3 %; Neutrophils # 3.3 K/mcL (1.6-8.9); Platelet Count 260 K/mcL (140-400); Red Blood Count 3.69 M/mcL (3.82-4.97); Red Cell Distribution Width 14.3 % (11.5-14.5); Segmented Neutrophils % 61.6 %
[2017-04-18] MEDS: *HR* Promethazine 25 MG/ML VIAL IVP PRN ×3 (05:37→23:28)
[2017-04-18] MEDS: *HR* Enoxaparin 40 MG/0.4 ML SYRINGE SQ SCH (05:37)
[2017-04-18 05:48] LABS: Alanine Aminotransferase 725 Units/L (0-55); Albumin 3.2 g/dL (3.5-5.0); Alkaline Phosphatase 193 Units/L (38-126); Aspartate Amino Transferase 706 Units/L (5-34); BUN/Creatinine Ratio 8 (6-26); Bilirubin,Total 0.4 mg/dL (0.2-1.2); Blood Urea Nitrogen 6 mg/dL (7-20); Calcium 8.7 mg/dL (8.6-10.8); Carbon Dioxide 24 mEq/L (19-29); Chloride 107 mEq/L (98-109); Globulin 3.1 g/dL (2.4-3.5); Glucose 93 mg/dL (70-99); Lipase 70 Units/L (8-78); Osmolality,Calculated 287 (280-300); Potassium 3.8 mEq/L (3.5-4.5); Sodium 140 mEq/L (136-145); Total Protein 6.3 g/dL (6.0-8.3); eGFR For African Americans > 60 (> 60); eGFR For Non-African Americans > 60 (> 60)
--- NOTE | 2017-04-18 18:02 | Internal Med Progress Note ---
Date of Encounter: 04/18/17 Time of Encounter: 17:50 - Assessment and plan (1) Pancreatitis Current Visit: Yes Status: Acute Assessment and plan: April 18. Question if lipase lab results from yesterday and today are both accurate. CT of abdomen/pelvis in the emergency room did not show evidence of pancreatic inflammation. We will advance diet and recheck labs in a.m. Qualifiers: Chronicity: acute Pancreatitis type: unspecified pancreatitis type Acute pancreatitis complication: no infection or necrosis Qualified Code(s): K85.90 - Acute pancreatitis without necrosis or infection, unspecified (2) Hypokalemia Current Visit: No Status: Acute Assessment and plan: April 18. Resolved. Continue IV fluids with potassium. Recheck labs in a.m. (3) Elevated transaminase level Current Visit: Yes Status: Acute Assessment and plan: April 18. I told her she might have acute viral gastroenteritis with liver involvement. Will recheck labs in a.m. - Subjective Interval history: April 18. She has no new complaints. She has not vomited today. She still has some mid abdominal discomfort - Constitutional Vitals: Temp Pulse Resp BP Pulse Ox 98.4 F 94 16 103/70 97 04/18/17 16:12 04/18/17 16:12 04/18/17 16:12 04/18/17 16:12 04/18/17 16:12 Exam: She appears to be resting comfortably in bed in no acute distress. Her affect is bright and cheerful. I reviewed her medications and lab results. Internal Medicine: Result - Labs CBC & Chem 7: 04/18/17 05:00 04/18/17 05:00 Labs: Short CBC 04/18/17 Range/Units 05:00 WBC 5.4 (4.3-11.1) K/mcL Hgb 10.9 L (11.5-15.4) g/dL Hct 32.7 L (35.3-44.9) % Plt Count 260 (140-400) K/mcL Neutrophils # 3.3 (1.6-8.9) K/mcL BMP 04/18/17 05:00 Sodium 140 Potassium 3.8 Chloride 107 Carbon Dioxide 24 BUN 6 L Creatinine 0.79 Glucose 93 Calcium 8.7 Liver Function 04/18/17 Range/Units 05:00 Total Bilirubin 0.4 (0.2-1.2) mg/dL AST 706 H (5-34) Units/L ALT 725 H (0-55) Units/L Alkaline Phosphatase 193 H (38-126) Units/L Albumin 3.2 L D (3.5-5.0) g/dL Consult Discharge Plan - Plan Referrals: Sameera Crow, FOUZIA [Primary Care Provider] - 1 week
[2017-04-19] MEDS: 0.45 % Sodium Chloride w/KCl 20 MEQ/1,000 ML MLS IVC SCH (01:09)
[2017-04-19] MEDS: *HR* HYDROmorphone (PF) 1 MG/ML SYRINGE IVP PRN ×5 (02:03→11:16)
[2017-04-19 06:25] LABS: Basophils % 0.6 %; Eosinophils # 0.2 K/mcL (0.0-0.6); Eosinophils % 3.4 %; Hematocrit 30.3 % (35.3-44.9); Immature Granulocytes % 0.1 % (0-4); Lymphocytes # 2.2 K/mcL (0.6-4.6); Lymphocytes % 31.8 %; Mean Corpuscular Hemoglobin 29.5 pg (28.0-33.3); Mean Corpuscular Volume 89.4 fL (83.0-100.0); Mean Platelet Volume 9.9 fL (9.4-12.4); Monocytes # 0.4 K/mcL (0.0-1.3); Monocytes % 6.2 %; Neutrophils # 3.9 K/mcL (1.6-8.9); Platelet Count 254 K/mcL (140-400); Red Blood Count 3.39 M/mcL (3.82-4.97); Red Cell Distribution Width 14.2 % (11.5-14.5); Segmented Neutrophils % 57.9 %
[2017-04-19 06:44] LABS: BUN/Creatinine Ratio 7 (6-26); Calcium 8.6 mg/dL (8.6-10.8); Carbon Dioxide 24 mEq/L (19-29); Chloride 105 mEq/L (98-109); Glucose 107 mg/dL (70-99); Lipase 60 Units/L (8-78); Osmolality,Calculated 286 (280-300); Potassium 3.9 mEq/L (3.5-4.5); Sodium 139 mEq/L (136-145); eGFR For African Americans > 60 (> 60); eGFR For Non-African Americans > 60 (> 60)
[2017-04-19 06:45] LABS: Blood Urea Nitrogen 5 mg/dL (7-20)
[2017-04-19] MEDS: *HR* Enoxaparin 40 MG/0.4 ML SYRINGE SQ SCH (06:45)
[2017-04-19] MEDS: *HR* Promethazine 25 MG/ML VIAL IVP PRN (08:10)
[2017-04-19 10:39] VITALS: BP 94/54
[2017-04-19 10:49] LABS: Alanine Aminotransferase 417 Units/L (0-55); Albumin 2.9 g/dL (3.5-5.0); Alkaline Phosphatase 168 Units/L (38-126); Aspartate Amino Transferase 227 Units/L (5-34); BUN/Creatinine Ratio 6 (6-26); Bilirubin,Total 0.4 mg/dL (0.2-1.2); Calcium 8.5 mg/dL (8.6-10.8); Carbon Dioxide 27 mEq/L (19-29); Chloride 104 mEq/L (98-109); Globulin 2.8 g/dL (2.4-3.5); Glucose 94 mg/dL (70-99); Osmolality,Calculated 285 (280-300); Sodium 139 mEq/L (136-145); Total Protein 5.7 g/dL (6.0-8.3); eGFR For African Americans > 60 (> 60); eGFR For Non-African Americans > 60 (> 60)
[2017-04-19 10:51] LABS: Blood Urea Nitrogen 4 mg/dL (7-20)
--- NOTE | 2017-04-19 11:55 | Discharge Summary ---
Date of Encounter: 04/19/17 Time of Encounter: 11:47 - Discharge Diagnosis (1) Gastroenteritis Priority: Primary Status: Acute (2) Hypokalemia Priority: Secondary Status: Resolved (3) Elevated transaminase level Priority: Secondary Status: Acute - Discharge Medications Home Medications: Tizanidine HCl [Zanaflex] 4 mg PO BID 11/05/15 [History] Albuterol Sulfate [Albuterol Inhaler] 1 puff IH QID 06/23/16 [History] BuPROPion [Wellbutrin] 300 mg PO DAILY 06/23/16 [History] Clopidogrel [Plavix] 75 mg PO DAILY 06/23/16 [History] Niacin [Niaspan] 1,000 mg PO DAILY 06/23/16 [History] Nitroglycerin [Nitrostat] 0.4 mg SL PRN PRN 06/23/16 [History] Promethazine [Phenergan] 25 mg RC Q6HR #30 supp.rect 11/03/16 [Rx] Lansoprazole [Prevacid] 30 mg PO DAILY #20 tab.rap. 11/15/16 [Rx] HYDROcodone/Acet 5/325 mg [[place] 5-325 mg] 1 tab PO Q6H PRN #14 tab 02/21/17 [Rx ] Ondansetron ODT [Zofran ODT] 4 mg SL Q6HR #24 tab.rapdis 03/08/17 [Rx] Promethazine Syrup [Phenergan Syrup] 25 mg PO Q8HR #150 mls 03/08/17 [Rx] Promethazine [Phenergan] 25 mg PO Q6HR #20 tablet 03/08/17 [Rx] Allergies/Adverse Reactions: 3 Allergy/AdvReac Type Severity Reaction Status Date / Time acetaminophen [From Fioricet] Allergy Hives Verified 11/05/15 14:41 butalbital [From Fioricet] Allergy Hives Verified 11/05/15 14:41 caffeine [From Fioricet] Allergy Hives Verified 11/05/15 14:41 [place] Allergy Hives Verified 11/05/15 14:41 phenytoin [From Dilantin] Allergy Hives Verified 11/05/15 14:41 Date of admission: 04/17/17 18:30 Primary care physician: Sameera Crow CNP - Patient Status Disposition: Home, Self-Care Condition: Good Functional capacity at discharge: independent ambulation Overall status at discharge: patient is progressing back to baseline - Discharge Instructions Follow Up With: Sameera Crow CNP [Primary Care Provider] - 1 week - Diet and Activity Activity: resume usual activities as tolerated Diet: advance to your usual diet Hospital course: Ms. Goodrich is a 51 year old female who came to emergency room stating she had onset of vomiting and diarrhea with right upper quadrant and epigastric discomfort the evening of April 14. She had approximately 5 episodes of vomiting and diarrhea over the next 2 days. She came to emergency room and was evaluated and found to have hypokalemia and elevated lipase and amylase. She was admitted to [facility] for ongoing care needs. Initial orders were written by the emergency room physician. I saw her on April 17 and performed the history and physical. She was admitted with a diagnosis of pancreatitis although CT scan did not show pancreatic inflammation. Her lipase returned to normal the following day and I question if he initial lab lipase may have been erroneous. Repeat lipase on April 19 was again normal. She had significant rise in LFTs April 18 with AST 706 and ALT 725. These had improved significantly by the following day. She had a low-grade fever the last 24 hours of hospitalization and I felt she likely had a viral gastroenteritis as the primary cause of her symptoms. Her diet was advanced and tolerated well and she did not vomit the last 24 hours of hospitalization. She felt she was stable for discharge home on April 19. Supplemental potassium was given an hypokalemia resolved. She will be discharged home and follow with her PCP Sameera Crow CNP within 1 week. - Time Spent with Patient Total time spent providing and/or coordinating discharge services: - Constitutional Vitals: Temp Pulse Resp BP Pulse Ox 99.5 F 69 18 94/54 94 04/19/17 10:38 04/19/17 10:38 04/19/17 10:38 04/19/17 10:38 04/19/17 10:38
[2017-04-19] MEDS ORDERED: FLUARIX QUAD 2017-18 36MOS UP/PF 0.5 ML SYRINGE IM ONE (13:25)
== END 2017-04-19 13:41 | disposition home or self-care (01) | DRG 249 ==
LOC: EMEROOPIK 02:14 → INPPIK 02:14
PROVIDERS: ADMIT Internal Medicine; ATTEND Internal Medicine

== ENCOUNTER 2017-06-10 00:19 | Observation (INO) ==
--- NOTE | 2017-06-10 00:35 | Emergency Department Note ---
Disposition Clinical Impression: Abdominal pain Qualifiers: Abdominal location: right upper quadrant Qualified Code(s): R10.11 - Right upper quadrant pain Pancreatitis Qualifiers: Chronicity: acute Pancreatitis type: unspecified pancreatitis type Acute pancreatitis complication: unspecified Qualified Code(s): K85.90 - Acute pancreatitis without necrosis or infection, unspecified Disposition: Admitted As Inpatient Condition: Fair Referrals: Sameera Crow [Primary Care Provider] - Forms: ED Satisfaction Letter, Work/School Release Abdominal Pain HPI - General Chief Complaint: ED Abdominal Pain Stated Complaint: "think my chronic pancreatitis is back" Time Seen by Provider: 06/10/17 00:29 Source: patient, family Mode of arrival: private vehicle Limitations: no limitations Nursing Notes Reviewed: Yes Vital Signs Reviewed: Yes - History of Present Illness HPI Narrative: Patient reports that she has had recurrent pancreatitis as a "complication of gastric bypass". Her last episode was earlier this May. She has had 4-5 episodes of nausea and vomiting in last 24 hours with increasingly severe epigastric and right upper quadrant abdominal pain tonight. She states this does radiate to her back and is like she has had before with her pancreatitis. She reports slight diarrhea and no blood or mucus in her emesis or stool. She states after her bypass she also has malabsorption and gets home IV fluids via her left upper chest port. She denies that she has been having fever, chills, chest pain, cough or shortness of breath. She denies any alcohol or other gastric irritants or change in her regular diet. She denies weakness, dizziness or diaphoresis. She states when the pain comes on she cannot tolerate it and it she has had to come back to the emergency department. Pt Subjective Complaint: abdominal pain Onset (ago): day(s) (1) Consistency: Worsening Location: RUQ, epigastric Pain Severity: severe Pain Scale: 10 Quality: aching, dull Radiation: back Migration to: no migration Improves with: nothing Worsens with: eating, vomiting Context: history of similar episodes Associated symptoms: Reports: nausea, vomiting, diarrhea. Denies: fever, chills , constipation, dysuria, hematemesis, hematochezia, melena, hematuria, anorexia , syncope Treatments prior to arrival: none - Related Data Home Medications Medication Instructions Recorded Confirmed Tizanidine HCl [Zanaflex] 4 mg PO BID 11/05/15 06/10/17 BuPROPion [Wellbutrin] 300 mg PO DAILY 06/23/16 06/10/17 Niacin [Niaspan] 1,000 mg PO DAILY 06/23/16 06/10/17 Nitroglycerin [Nitrostat] 0.4 mg SL PRN PRN 06/23/16 06/10/17 Ondansetron [Zofran ODT] 8 mg SL Q4HR 04/29/17 06/10/17 Loratadine [Allergy Relief] 10 mg PO DAILY 05/15/17 06/10/17 Montelukast [Singulair] 10 mg PO HS 05/15/17 06/10/17 Pantoprazole Sodium 40 mg PO DAILY 05/15/17 06/10/17 Simvastatin [Zocor] 40 mg PO HS 05/15/17 06/10/17 Temazepam [Restoril] 30 mg PO HS 05/15/17 06/10/17 Venlafaxine XR (24 HR) [Effexor XR] 37.5 mg PO DAILY 05/15/17 06/10/17 Verapamil [Isoptin] 120 mg PO DAILY 05/15/17 06/10/17 rOPINIRole [Requip] 1 mg PO HS 05/15/17 06/10/17 Allergies Allergy/AdvReac Type Severity Reaction Status Date / Time acetaminophen [From Fioricet] Allergy Hives Verified 06/10/17 00:22 butalbital [From Fioricet] Allergy Hives Verified 05/15/17 13:21 caffeine [From Fioricet] Allergy Hives Verified 05/15/17 13:21 [place] Allergy Hives Verified 05/15/17 13:21 phenytoin [From Dilantin] Allergy Hives Verified 05/15/17 13:21 methocarbamol [From Robaxin] AdvReac Vomiting Verified 05/15/17 13:22 All systems ED: reviewed and negative except as stated. Abdominal Pain PMH - Past Medical History Medical history: Reports: asthma, COPD, coronary artery disease, GERD, hyperlipidemia, myocardial infarction, renal disease, seizures, TIA, other Female Surgical History: Reports: , cholecystectomy, hysterectomy, JENIFFER/ BSO, Tonsillectomy, other (Gastric bypass) Psychiatric history: Reports: anxiety, depression - Social History Smoking status: Former smoker Alcohol use: Reports: none, recent Drug use: Reports: none Physical Exam - General Limitations: no limitations General appearance: alert, anxious, in distress - Head Head exam: atraumatic, normocephalic, normal inspection - Eye Eye exam: Present: normal appearance, PERRL, EOMI. Absent: scleral icterus, conjunctival injection - ENT ENT exam: normal exam, normal oropharynx, mucous membranes moist - Neck Neck exam: Present: normal inspection, full ROM, trachea midline - Chest Chest inspection: Present: normal inspection, symmetric chest wall rise - Respiratory Respiratory exam: Present: normal lung sounds bilaterally. Absent: respiratory distress, wheezes, prolonged expiratory phase - Cardiovascular Cardiovascular exam: Present: regular rate, normal rhythm, normal heart sounds. Absent: tachycardia - Abdominal Exam Abdominal exam: Present: soft, normal bowel sounds. Absent: distention, guarding, rebound, rigidity Abdominal tenderness: Present: RUQ, epigastrium, moderate - Extremities Exam Extremities exam: Present: normal inspection, full ROM. Absent: tenderness, pedal edema - Expanded Lower Extremity Exam Neurovascular/Tendon exam: Present: normal capillary refill. Absent: motor deficit, sensory deficit, tendon deficit Gait: antalgic - Back Exam Back exam: Present: normal inspection, full ROM. Absent: tenderness, CVA tenderness (R), CVA tenderness (L) - Neurological Exam Neurological exam: Present: alert, oriented X3 - Psychiatric Psychiatric exam: Present: normal affect, normal mood - Skin Skin exam: Present: warm, dry, intact, normal color. Absent: diaphoresis, pallor Course Course Narrative: 0125: Laboratory results are discussed with Dr. Bucio. He is agreeable with observation of this patient for hydration and pain control. Verbal orders have been obtained and we are awaiting bed placement. Vital Signs Temperature 97.8 F 06/10/17 00:20 Pulse Rate 81 06/10/17 00:20 Respiratory Rate 16 06/10/17 00:20 Blood Pressure 108/67 06/10/17 00:20 O2 Sat by Pulse Oximetry 100 06/10/17 00:20 Temperature 97.8 F 06/10/17 00:20 Pulse Rate 78 06/10/17 01:07 Respiratory Rate 16 06/10/17 01:07 Blood Pressure 122/81 06/10/17 01:07 O2 Sat by Pulse Oximetry 100 06/10/17 01:07 Oxygen Delivery Oxygen Delivery Room Air Abdominal Pain - Differential Diagnosis Differential Diagnosis: Likely: abdominal pain non-specific, pancreatitis - Medical Records Medical records reviewed: Yes I reviewed the patient's medical records. EXAMINATION: MRCP 05/18/2017 12:15 pm TECHNIQUE: After initial T2 axial and coronal images, thick slab, thin slab and 3D coronal MRCP sequences were obtained without the administration of intravenous contrast. MIP images are provided for review. COMPARISON: CT on 04/17/2017 HISTORY: Chronic pancreatitis. Epigastric pain and nausea/vomiting for 1 week. FINDINGS: Image quality degraded by motion artifact on some sequences. Gallbladder: Surgically absent. Bile Ducts: No intrahepatic or extrahepatic biliary ductal dilatation. No intraductal filling defect. Common bile duct measures 5 mm. Pancreatic Duct: Not dilated. Normal anatomy. Other: Status post gastric bypass and lumbar fusion. No evidence of hepatic steatosis. No adrenal nodule. No significant ascites. No hydronephrosis. Minimal bilateral pleural effusions. MR/MR abdomen wo con IMPRESSION: Cholecystectomy. No biliary ductal dilatation or evidence for choledocholithiasis. D/ / Julius Barba MD / Julius Barba MD - Lab Data Lab results reviewed: Yes I reviewed the patient's lab results. Result diagrams: 06/10/17 00:50 06/10/17 00:50 Lab Results 06/10/17 06/10/17 Range/Units 00:50 00:50 WBC 7.4 (4.3-11.1) K/mcL RBC 3.72 L (3.82-4.97) M/mcL Hgb 10.6 L (11.5-15.4) g/dL Hct 31.6 L (35.3-44.9) % MCV 84.9 (83.0-100.0) fL MCH 28.5 (28.0-33.3) pg MCHC 33.5 (31.6-35.5) g/dL RDW 13.0 (11.5-14.5) % Plt Count 309 (140-400) K/mcL MPV 8.9 L (9.4-12.4) fL Immature Gran % 0.3 (0-4) % Seg Neutrophils % 57.8 % Lymphocytes % 32.3 % Monocytes % 6.4 % Eosinophils % 2.4 % Basophils % 0.8 % Neutrophils # 4.3 (1.6-8.9) K/mcL Lymphocytes # 2.4 (0.6-4.6) K/mcL Monocytes # 0.5 (0.0-1.3) K/mcL Eosinophils # 0.2 (0.0-0.6) K/mcL Basophils # 0.1 (0.0-0.2) K/mcL Sodium 140 (136-145) mEq/L Potassium 3.1 L (3.5-4.5) mEq/L Chloride 100 (98-109) mEq/L Carbon Dioxide 29 (19-29) mEq/L BUN 11 (7-20) mg/dL Creatinine 0.97 (0.57-1.11) mg/dL Est GFR ( Amer) > 60 (> 60) Est GFR (Non-Af Amer) > 60 (> 60) BUN/Creatinine Ratio 11 (6-26) Glucose 87 (70-99) mg/dL Calculated Osmolality 289 (280-300) Calcium 9.2 (8.6-10.8) mg/dL Total Bilirubin 0.2 (0.2-1.2) mg/dL Direct Bilirubin < 0.1 (0.0-0.5) mg/dL Indirect Bilirubin 0.1 (0.0-1.2) mg/dL AST 34 (5-34) Units/L ALT 42 (0-55) Units/L Alkaline Phosphatase 90 (38-126) Units/L Serum Total Protein 6.9 (6.0-8.3) g/dL Albumin 3.8 (3.5-5.0) g/dL Globulin 3.1 (2.4-3.5) g/dL Albumin/Globulin Ratio 1.2 (1.1-2.2) Amylase 92 (25-125) Units/L Lipase 122 H (8-78) Units/L
[2017-06-10] MEDS ORDERED: 0.9 % Sodium Chloride 1,000 ML IVC ONE (00:58)
[2017-06-10] MEDS ORDERED: Ondansetron 4 MG/2 ML VIAL IVP ONE (00:58)
[2017-06-10] MEDS ORDERED: *HR* HYDROmorphone (PF) 1 MG/ML SYRINGE IVP ONE ×2 (00:58→01:37)
[2017-06-10] MEDS ORDERED: 0.9 % Sodium Chloride 1,000 ML IVC SCH ×2 (01:00→02:24)
[2017-06-10 01:02] LABS: Basophils # 0.1 K/mcL (0.0-0.2); Basophils % 0.8 %; Eosinophils # 0.2 K/mcL (0.0-0.6); Eosinophils % 2.4 %; Hematocrit 31.6 % (35.3-44.9); Hemoglobin 10.6 g/dL (11.5-15.4); Immature Granulocytes % 0.3 % (0-4); Lymphocytes # 2.4 K/mcL (0.6-4.6); Lymphocytes % 32.3 %; Mean Corpuscular HGB Conc 33.5 g/dL (31.6-35.5); Mean Corpuscular Hemoglobin 28.5 pg (28.0-33.3); Mean Corpuscular Volume 84.9 fL (83.0-100.0); Mean Platelet Volume 8.9 fL (9.4-12.4); Monocytes # 0.5 K/mcL (0.0-1.3); Monocytes % 6.4 %; Neutrophils # 4.3 K/mcL (1.6-8.9); Platelet Count 309 K/mcL (140-400); Red Blood Count 3.72 M/mcL (3.82-4.97); Segmented Neutrophils % 57.8 %
[2017-06-10 01:21] LABS: Alanine Aminotransferase 42 Units/L (0-55); Albumin 3.8 g/dL (3.5-5.0); Albumin/Globulin Ratio 1.2 (1.1-2.2); Alkaline Phosphatase 90 Units/L (38-126); Amylase 92 Units/L (25-125); Aspartate Amino Transferase 34 Units/L (5-34); BUN/Creatinine Ratio 11 (6-26); Bilirubin,Direct < 0.1 mg/dL (0.0-0.5); Bilirubin,Indirect 0.1 mg/dL (0.0-1.2); Bilirubin,Total 0.2 mg/dL (0.2-1.2); Blood Urea Nitrogen 11 mg/dL (7-20); Calcium 9.2 mg/dL (8.6-10.8); Carbon Dioxide 29 mEq/L (19-29); Chloride 100 mEq/L (98-109); Globulin 3.1 g/dL (2.4-3.5); Glucose 87 mg/dL (70-99); Lipase 122 Units/L (8-78); Osmolality,Calculated 289 (280-300); Potassium 3.1 mEq/L (3.5-4.5); Sodium 140 mEq/L (136-145); Total Protein 6.9 g/dL (6.0-8.3); eGFR For African Americans > 60 (> 60); eGFR For Non-African Americans > 60 (> 60)
[2017-06-10] MEDS ORDERED: Naloxone 0.4 MG/ML INJ IVP PRN (02:24)
[2017-06-10] MEDS ORDERED: Nitroglycerin 0.4 MG TAB.SUBL SL PRN (02:24)
[2017-06-10] MEDS ORDERED: Ondansetron 4 MG/2 ML VIAL IVP PRN (02:24)
[2017-06-10] MEDS: *HR* HYDROmorphone (PF) 1 MG/ML SYRINGE IVP PRN ×5 (03:04→20:15)
[2017-06-10] MEDS: *HR* Promethazine 25 MG/ML VIAL IVP PRN ×3 (03:39→15:30)
[2017-06-10] MEDS: Ondansetron 4 MG/2 ML VIAL IVP PRN ×2 (06:54→20:08)
[2017-06-10] MEDS ORDERED: Niacin (24 HR) 500 MG TAB.ER.24H PO SCH (09:00)
[2017-06-10] MEDS ORDERED: Loratadine 10 MG TABLET PO SCH (09:00)
[2017-06-10] MEDS: tiZANidine 4 MG TABLET PO SCH ×2 (10:06→20:19)
[2017-06-10] MEDS: Venlafaxine XR (24 HR) 37.5 MG CAP.ER.24H PO SCH (10:06)
[2017-06-10] MEDS: 0.45 % Sodium Chloride w/KCl 20 MEQ/1,000 ML MLS IVC SCH (10:30)
--- NOTE | 2017-06-10 15:21 | Internal Med History&Physical ---
Date of Encounter: 06/10/17 Time of Encounter: 14:50 Assessment and Plan (1) Pancreatitis Current visit: Yes Status: Acute Now improved. Continue IV fluids. Will add Reglan to lessen nausea and improve GI motility. Qualifiers: Chronicity: acute Pancreatitis type: unspecified pancreatitis type Acute pancreatitis complication: unspecified Qualified Code(s): K85.90 - Acute pancreatitis without necrosis or infection, unspecified (2) Hypokalemia Current visit: No Status: Acute Will give supplemental potassium and recheck labs in a.m. (3) Anemia Current visit: Yes Status: Acute Will order anemia testing. Qualifiers: Anemia type: unspecified type Qualified Code(s): D64.9 - Anemia, unspecified Internal Medicine - H&P: HPI Chief complaint: Vomiting Admitted From: Emergency Dept Plans for Post Hospital Care: Home History of present illness: Ms. Goodrich is a 51 year old female who came to emergency room stating she had onset of vomiting the evening of June 08. She reports multiple symptoms of vomiting without evidence of blood. She denies diarrhea fevers or chills. On the following day she developed some discomfort in her abdomen which persisted. She decided to come to emergency room for several hours per she was admitted and felt to have possible acute pancreatitis. She was admitted to [facility] floor for ongoing care needs. She was hospitalized April 2017 at [facility] and May 2017 at [facility] with similar symptoms. She has had multiple similar episodes since January 2016 and was hospitalized at [facility] June 2016 and reports EGD showed no significant pathology. No definite etiology of "pancreatitis" has been determined. MRI of the abdomen was done during her [facility] stay which showed no significant pathology. CA 19-9 antigen returned normal at 20 on 09/03/2016. She had MRCP during her recent [facility] stay without acute pathology seen.\\ She has been diagnosed with esophageal motility disorder. She has had cholecystectomy. 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 She reports no alcohol intake since approximately 2013. She had GBS July 2014 with weight decreasing from 270 to 140. Her weight is been stable since August 2016 hospitalization. She had colonoscopy 2014 with polypectomy. Past Med Surg Social Fam HX - Past Medical History Medical history: asthma, COPD, coronary artery disease, GERD, hyperlipidemia, myocardial infarction, renal disease, seizures, TIA, other Psychiatric history: anxiety, depression - Past Surgical History Surgical History: , cholecystectomy, hysterectomy - Social History Smoking Status: Former smoker Smokeless Tobacco Status: No Alcohol use: none, recent Drug use: none - Family History Mother Family Member Ethnicity: Non- Living Status: Hx Family Cardiac Disorders: No Hx Family Respiratory Disorders: No Hx Family Cancer: Yes (Throat) Hx Family GI Disorders: No Hx Family Endocrine Disorder: No Hx Family Neuromuscular Disorders: No Hx Family Neurologic Disorders: No Hx Family HEENT Disorders: No Hx Family Autoimmune Disorders: No Father Family Member Ethnicity: Non- Living Status: Hx Family Cancer: Yes (Prostate) Hx Family Neurologic Disorders: Yes (Alzheimer's disease) Brother Family Member Ethnicity: Non- Living Status: Still Living Sister Family Member Ethnicity: Non- Living Status: Hx Family Cardiac Disorders: Yes ([place]) Hx Family Cancer: Yes (Breast cancer) Internal Medicine - H&P: Meds Tizanidine HCl [Zanaflex] 4 mg PO BID 11/05/15 [History] BuPROPion [Wellbutrin] 300 mg PO DAILY 06/23/16 [History] Niacin [Niaspan] 1,000 mg PO DAILY 06/23/16 [History] Nitroglycerin [Nitrostat] 0.4 mg SL PRN PRN 06/23/16 [History] Ondansetron [Zofran ODT] 8 mg SL Q4HR 04/29/17 [History] Loratadine [Allergy Relief] 10 mg PO DAILY 05/15/17 [History] Montelukast [Singulair] 10 mg PO HS 05/15/17 [History] Pantoprazole Sodium 40 mg PO DAILY 05/15/17 [History] Simvastatin [Zocor] 40 mg PO HS 05/15/17 [History] Temazepam [Restoril] 30 mg PO HS 05/15/17 [History] Venlafaxine XR (24 HR) [Effexor XR] 37.5 mg PO DAILY 05/15/17 [History] Verapamil [Isoptin] 120 mg PO DAILY 05/15/17 [History] rOPINIRole [Requip] 1 mg PO HS 05/15/17 [History] 3 Allergy/AdvReac Type Severity Reaction Status Date / Time acetaminophen [From Fioricet] Allergy Hives Verified 06/10/17 00:22 butalbital [From Fioricet] Allergy Hives Verified 05/15/17 13:21 caffeine [From Fioricet] Allergy Hives Verified 05/15/17 13:21 [place] Allergy Hives Verified 05/15/17 13:21 phenytoin [From Dilantin] Allergy Hives Verified 05/15/17 13:21 methocarbamol [From Robaxin] AdvReac Vomiting Verified 05/15/17 13:22 All Systems PM: A 10-system review of systems was performed and is negative for pertinent findings except as documented above in the HPI. Review of systems: Review of systems from her April 2017 hospitalization were reviewed and revised as below. Gen.: Her weight has been stable since August 2016 hospitalization at approximately 70 kg. Cardiovascular: She claims she had myocardial infarction in 2008. She had a Regadenoson test 04/29/2016 which showed no EKG or perfusion imaging changes suspicious for ischemia or infarct. She denies hypertension heart failure DVT or pulmonary embolus. She has paroxysmal atrial fibrillation and follows with Dr. Ramirez at [facility]. 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 Respiratory: She smoked minimally is an early adult and has no known chronic lung disease GI: As per history of present illness : She reports right kidney atrophy and chronic kidney disease stage III. She denies other kidney or bladder disorders. Neurologic: She claims she had a stroke 2004 with right leg weakness. She reports the weakness has completely resolved now. She has had no further large distribution strokes. She states she had childhood seizures Endocrine: She has history of hyperlipidemia. She has history of DM 2 but she does not take medication since she had significant weight loss. She denies thyroid disease Hematology/oncology: She denies blood disorders cancers or anemia Psychiatric: She has anxiety and depression but denies other mental health issues [place] skeletal: She denies arthritis gout or other bone joint or muscle disorders. - Constitutional Vitals: Temp Pulse Resp BP Pulse Ox 98.2 F 72 17 127/84 100 06/10/17 10:00 06/10/17 10:00 06/10/17 10:00 06/10/17 10:00 06/10/17 10:00 Exam: Gen.: She is well-developed well-nourished female lying quietly in bed who appears in no acute distress at present time HEENT: Head is atraumatic and normocephalic. Eyes: EOMI. There is no scleral icterus. Mouth: Mucosa is moist. Neck: Supple and nontender. There is no thyromegaly or adenopathy noted. Heart: Regular without murmurs gallops or ectopics Lungs: No wheezes or crackles are heard. Abdomen: Soft and nontender. No masses or guarding are noted. Extremities: There is no cyanosis edema or clubbing noted. Dorsalis pedis and posttibial pulses are 2 over 2 bilaterally. Neurologic: Mental status: She is talkative and a good historian. Cranial nerves: Smile is symmetric. Forehead wrinkles bilaterally. Tongue protrudes midline. EOMI. Motor: There is no pronator drift. Cerebellar: Finger to nose is intact bilaterally. Skin: Warm and dry Internal Med - H&P Results - Labs CBC & Chem 7: 06/10/17 00:50 06/10/17 00:50
[2017-06-10] MEDS ORDERED: Temazepam 15 MG CAPSULE PO SCH (21:00)
[2017-06-10] MEDS ORDERED: rOPINIRole 1 MG TABLET PO SCH (21:00)
[2017-06-10 22:47] LABS: % Iron Saturation 27 % (15-50); Iron 109 mcg/dL (50-170); Transferrin 288 mg/dL (180-382)
[2017-06-10 23:07] LABS: Ferritin 8 ng/ml (5-204); Folate 14.3 ng/mL (7.0-31.4)
[2017-06-11] MEDS: *HR* HYDROmorphone (PF) 1 MG/ML SYRINGE IVP PRN ×3 (00:14→09:53)
[2017-06-11] MEDS: Ondansetron 4 MG/2 ML VIAL IVP PRN ×2 (00:14→04:50)
[2017-06-11] MEDS: 0.45 % Sodium Chloride w/KCl 20 MEQ/1,000 ML MLS IVC SCH ×2 (00:15→08:55)
[2017-06-11 05:51] LABS: Basophils % 0.6 %; Eosinophils # 0.2 K/mcL (0.0-0.6); Eosinophils % 3.6 %; Hematocrit 29.7 % (35.3-44.9); Hemoglobin 9.6 g/dL (11.5-15.4); Immature Granulocytes % 0.2 % (0-4); Lymphocytes # 2.2 K/mcL (0.6-4.6); Mean Corpuscular HGB Conc 32.3 g/dL (31.6-35.5); Mean Corpuscular Hemoglobin 28.4 pg (28.0-33.3); Mean Corpuscular Volume 87.9 fL (83.0-100.0); Mean Platelet Volume 9.4 fL (9.4-12.4); Monocytes # 0.3 K/mcL (0.0-1.3); Monocytes % 5.3 %; Neutrophils # 2.6 K/mcL (1.6-8.9); Platelet Count 272 K/mcL (140-400); Red Blood Count 3.38 M/mcL (3.82-4.97); Red Cell Distribution Width 13.6 % (11.5-14.5); Segmented Neutrophils % 49.3 %
[2017-06-11 06:57] LABS: BUN/Creatinine Ratio 8 (6-26); Blood Urea Nitrogen 6 mg/dL (7-20); Calcium 8.6 mg/dL (8.6-10.8); Carbon Dioxide 25 mEq/L (19-29); Chloride 109 mEq/L (98-109); Glucose 78 mg/dL (70-99); Osmolality,Calculated 290 (280-300); Sodium 142 mEq/L (136-145); eGFR For African Americans > 60 (> 60); eGFR For Non-African Americans > 60 (> 60)
[2017-06-11] MEDS ORDERED: BuPROPion XL (24 HR) 150 MG TABLET PO SCH (09:00)
[2017-06-11] MEDS: Venlafaxine XR (24 HR) 37.5 MG CAP.ER.24H PO SCH (09:00)
[2017-06-11] MEDS: tiZANidine 4 MG TABLET PO SCH (09:03)
--- NOTE | 2017-06-11 11:02 | Discharge Summary ---
Date of Encounter: 06/11/17 Time of Encounter: 10:55 - Discharge Diagnosis (1) Pancreatitis Priority: Primary Status: Acute Qualifiers: Chronicity: acute Pancreatitis type: unspecified pancreatitis type Acute pancreatitis complication: unspecified Qualified Code(s): K85.90 - Acute pancreatitis without necrosis or infection, unspecified (2) Hypokalemia Priority: Secondary Status: Resolved (3) Anemia Priority: Secondary Status: Acute Qualifiers: Anemia type: unspecified type Qualified Code(s): D64.9 - Anemia, unspecified - Discharge Medications Prescriptions: Metoclopramide [Reglan] 5 mg PO ACHS #60 tablet Home Medications: Tizanidine HCl [Zanaflex] 4 mg PO BID 11/05/15 [History] Niacin [Niaspan] 1,000 mg PO DAILY 06/23/16 [History] Nitroglycerin [Nitrostat] 0.4 mg SL PRN PRN 06/23/16 [History] Ondansetron [Zofran ODT] 8 mg SL Q4HR 04/29/17 [History] Montelukast [Singulair] 10 mg PO HS 05/15/17 [History] Pantoprazole Sodium 40 mg PO DAILY 05/15/17 [History] Simvastatin [Zocor] 40 mg PO HS 05/15/17 [History] Temazepam [Restoril] 30 mg PO HS 05/15/17 [History] Venlafaxine XR (24 HR) [Effexor Xr] 37.5 mg PO DAILY 05/15/17 [History] Verapamil [Isoptin] 120 mg PO DAILY 05/15/17 [History] rOPINIRole [Requip] 1 mg PO HS 05/15/17 [History] BuPROPion XL (24 HR) [Wellbutrin Xl] 300 mg DAILY 06/10/17 [History] Loratadine [Allergy Relief] 10 mg PO DAILY PRN #0 06/11/17 [Rx] Metoclopramide [Reglan] 5 mg PO ACHS #60 tablet 06/11/17 [Rx] Allergies/Adverse Reactions: 3 Allergy/AdvReac Type Severity Reaction Status Date / Time acetaminophen [From Fioricet] Allergy Hives Verified 06/10/17 00:22 butalbital [From Fioricet] Allergy Hives Verified 05/15/17 13:21 caffeine [From Fioricet] Allergy Hives Verified 05/15/17 13:21 [place] Allergy Hives Verified 05/15/17 13:21 phenytoin [From Dilantin] Allergy Hives Verified 05/15/17 13:21 methocarbamol [From Robaxin] AdvReac Vomiting Verified 05/15/17 13:22 Date of admission: 06/10/17 01:45 Primary care physician: Sameera Crow Consults: 06/10/17 02:52 Consult to [employer] [CONS] Routine Reason for SW Consult: Recieves homehealth through [place] for hydration and medication through [facility]. - Patient Status Disposition: Home, Self-Care Condition: Fair Functional capacity at discharge: independent ambulation Overall status at discharge: patient is progressing back to baseline - Discharge Instructions Follow Up With: Sameera Crow [Primary Care Provider] - 1 week - Diet and Activity Activity: resume usual activities as tolerated Diet: advance to your usual diet Hospital course: Ms. Goodrich is a 51 year old female who came to emergency room stating she had onset of vomiting the evening of June 08. She reports multiple symptoms of vomiting without evidence of blood. She denies diarrhea fevers or chills. On the following day she developed some discomfort in her abdomen which persisted. She decided to come to emergency room for several hours per she was admitted and felt to have possible acute pancreatitis. She was admitted to [facility] floor for ongoing care needs. Initial orders were written by the emergency room physician. I saw her on June 10 and performed a history and physical. She was given IV fluids and supplemental potassium. Clear liquid diet was started the evening of June 10 and tolerated well. She had no further vomiting. Potassium level normalized to 4.0 by the following day. Anemia testing showed iron 109, transferrin saturation 27%, transferrin 288, ferritin 8, B12 1043, and folate 14.3. Her PCP can monitor her labs to follow- up on the anemia and hypokalemia. On June 11 she felt stable for discharge home. She will follow with her PCP within one week. - Time Spent with Patient Total time spent providing and/or coordinating discharge services: - Constitutional Vitals: Temp Pulse Resp BP Pulse Ox 97.3 F L 75 16 115/76 96 06/11/17 07:06 06/11/17 09:05 06/11/17 07:06 06/11/17 09:52 06/11/17 09:05
[2017-06-11 11:27] VITALS: BP 114/74
--- NOTE | 2017-06-11 11:56 | Physician Discharge Referral ---
Home Health/Hosp Referral Info Transfer to: Home Health Attending Provider: [place] Provider in Charge Post Discharge: PCP (Sameera Crow CNP) - Diagnosis (1) Pancreatitis Priority: Primary Status: Acute (2) Hypokalemia Priority: Secondary Status: Resolved (3) Anemia Priority: Secondary Status: Acute - Respiratory Orders Smoking Cessation: Smoking cessation has been advised. For more information, call the [place] Tobacco Quit Line at 5-724-TYIT-NOW. - Diet/Nutrition Diet/Nutrition Orders: Regular - Activity Activity Orders: Ambulate - Services Needed Following services are medically necessary services: Nursing, Home Health Aide - Transfer Medications Prescriptions: Metoclopramide [Reglan] 5 mg PO ACHS #60 tablet Home Medications: Tizanidine HCl [Zanaflex] 4 mg PO BID 11/05/15 [History] Niacin [Niaspan] 1,000 mg PO DAILY 06/23/16 [History] Nitroglycerin [Nitrostat] 0.4 mg SL PRN PRN 06/23/16 [History] Ondansetron [Zofran ODT] 8 mg SL Q4HR 04/29/17 [History] Montelukast [Singulair] 10 mg PO HS 05/15/17 [History] Pantoprazole Sodium 40 mg PO DAILY 05/15/17 [History] Simvastatin [Zocor] 40 mg PO HS 05/15/17 [History] Temazepam [Restoril] 30 mg PO HS 05/15/17 [History] Venlafaxine XR (24 HR) [Effexor Xr] 37.5 mg PO DAILY 05/15/17 [History] Verapamil [Isoptin] 120 mg PO DAILY 05/15/17 [History] rOPINIRole [Requip] 1 mg PO HS 05/15/17 [History] BuPROPion XL (24 HR) [Wellbutrin Xl] 300 mg DAILY 06/10/17 [History] Loratadine [Allergy Relief] 10 mg PO DAILY PRN #0 06/11/17 [Rx] Metoclopramide [Reglan] 5 mg PO ACHS #60 tablet 06/11/17 [Rx] Allergies/Adverse Reactions: 3 Allergy/AdvReac Type Severity Reaction Status Date / Time acetaminophen [From Fioricet] Allergy Hives Verified 06/10/17 00:22 butalbital [From Fioricet] Allergy Hives Verified 05/15/17 13:21 caffeine [From Fioricet] Allergy Hives Verified 05/15/17 13:21 [place] Allergy Hives Verified 05/15/17 13:21 phenytoin [From Dilantin] Allergy Hives Verified 05/15/17 13:21 methocarbamol [From Robaxin] AdvReac Vomiting Verified 05/15/17 13:22 Certification: Further, I certify that my clinical findings support that this patient is homebound (i.e. absences from home require considerable and taxing effort and are for medical reasons or denominational services or infrequently or short duration when for other reasons) because: Homebound Reason: Leaving home requires considerable and taxing effort due to condition (Resolving pancreatitis. Indwelling port with routine IV fluid administration and flushes) Attestation: My signature below is to certify that this patient is under my care and that I, or nurse practitioner, or a physician's shipping assistant working with me, has a face-to -face encounter with this patient.
== END 2017-06-11 12:01 | disposition home or self-care (01) ==
LOC: EMEROOPIK 00:19 → INPPIK 00:19
PROVIDERS: ADMIT Internal Medicine; ATTEND Internal Medicine

== ENCOUNTER 2017-12-20 21:48 | Observation (INO) ==
[2017-12-20] MEDS ORDERED: Ondansetron 4 MG/2 ML VIAL IVP ONE (22:17)
[2017-12-20] MEDS ORDERED: 0.9 % Sodium Chloride 1,000 ML IVC ONE (22:17)
--- NOTE | 2017-12-20 22:25 | Emergency Department Note ---
Disposition Clinical Impression: Acute pancreatitis Qualifiers: Pancreatitis type: other Acute pancreatitis complication: unspecified Qualified Code(s): K85.80 - Other acute pancreatitis without necrosis or infection Disposition: Admitted As Inpatient Condition: Fair Time of Disposition: 23:37 (Dr Bucio) Nausea/Vomiting/Diarrhea HPI - General Chief complaint: ED Nausea/Vomiting/Diarrhea Stated complaint: abd pain, n/v/d, h/o pancreatitis Time Seen by Provider: 12/20/17 22:16 Source: patient Mode of arrival: wheelchair Limitations: no limitations Nursing Notes Reviewed: Yes Vital Signs Reviewed: Yes - History of Present Illness HPI Narrative: Acute on chronic abdominal pain secondary to chronic pancreatitis. Pt Subjective Complaint: abdominal pain Onset (ago): day(s) (2) Description of emesis: watery If pain, Location of pain: epigastric Radiation: diffuse Severity: severe Quality: cramping, stabbing Consistency: constant Improves with: nothing Worsens with: nonthing Context: other (Similar to pancreatitis pain.) Associated symptoms: Reports: nausea/vomiting, weakness. Denies: chest pain, cough, diaphoresis, fever/chills, headaches, loss of appetite, malaise, rash, dysuria, shortness of breath, syncope - Related Data Home Medications Medication Instructions Recorded Confirmed Tizanidine HCl [Zanaflex] 4 mg PO BID 11/05/15 12/20/17 Venlafaxine XR (24 HR) [Effexor Xr] 75 mg PO DAILY 05/15/17 12/20/17 BuPROPion XL (24 HR) [Wellbutrin 300 mg PO DAILY 06/10/17 12/20/17 Xl] Aripiprazole [Abilify] 20 mg PO DAILY 06/29/17 12/20/17 Cholecalciferol (D-3) [Vitamin D] 5,000 unit PO DAILY 06/29/17 12/20/17 Cyanocobalamin (B-12) [Vitamin B12] 1,000 mcg IM QMONTH 06/29/17 12/20/17 Loratadine [Allergy Relief] 10 mg PO DAILY 10/01/17 12/20/17 Ondansetron [Zofran] 4 mg GTUBE Q8H PRN 10/01/17 12/20/17 Lipase/Protease/Amylase [Roxana Wyatt 1 cap PO QIDAC 10/18/17 12/20/17 6,000 Units Capsule] Previous Rx's Medication Instructions Recorded Sucralfate [Carafate] 1 gm PO QIDAC #40 tablet 10/09/17 Allergies Allergy/AdvReac Type Severity Reaction Status Date / Time acetaminophen [From Fioricet] Allergy Hives Verified 12/20/17 21:50 butalbital [From Fioricet] Allergy Hives Verified 12/20/17 21:50 caffeine [From Fioricet] Allergy Hives Verified 12/20/17 21:50 [place] Allergy Hives Verified 12/20/17 21:50 phenytoin [From Dilantin] Allergy Hives Verified 12/20/17 21:50 methocarbamol [From Robaxin] AdvReac Vomiting Verified 12/20/17 21:50 All systems ED: reviewed and negative except as stated. Review of Systems: As Per HPI Past Medical History - Past Medical History Medical history: Reports: asthma, COPD, coronary artery disease, GERD, hyperlipidemia, myocardial infarction, renal disease, seizures, TIA Surgical history: Reports: , cholecystectomy, herniorrhaphy, hysterectomy, bariatric surgery Psychiatric history: Reports: anxiety, depression INFORMATICS PHYSICIAN LIAISON history: Reports: no INFORMATICS PHYSICIAN LIAISON history - Social History Smoking Status: Never smoker Smokeless Tobacco Status: No Alcohol use: Reports: none Drug use: Reports: none Physical Exam - General Limitations: physical limitation General appearance: alert, in distress - Head Head exam: atraumatic, normocephalic, normal inspection - Eye Eye exam: Present: normal appearance, PERRL, EOMI - Neck Neck exam: Present: normal inspection, full ROM, trachea midline - Respiratory Respiratory exam: Present: normal lung sounds bilaterally - Cardiovascular Cardiovascular exam: Present: regular rate, normal rhythm, normal heart sounds - Abdominal Exam Abdominal exam: Present: soft, tenderness, Alvarado's sign. Absent: distention, guarding, rebound, rigidity, tenderness at McBurney's Point Abdominal tenderness: Present: epigastrium, moderate - Extremities Exam Extremities exam: Present: normal inspection, full ROM. Absent: tenderness, pedal edema - Back Exam Back exam: Present: normal inspection, full ROM. Absent: tenderness - Neurological Exam Neurological exam: Present: alert, oriented X3, CN II-XII intact, normal gait - Psychiatric Psychiatric exam: Present: normal affect, normal mood - Skin Skin exam: Present: warm, dry, intact, normal color Course Vital Signs Temperature 97.6 F 12/20/17 21:54 Pulse Rate 65 12/20/17 21:54 Respiratory Rate 16 12/20/17 21:54 Blood Pressure 92/60 12/20/17 21:54 O2 Sat by Pulse Oximetry 98 12/20/17 21:54 Temperature 98.4 F 12/21/17 04:08 Pulse Rate 73 12/21/17 04:08 Respiratory Rate 15 12/21/17 04:08 Blood Pressure 113/78 12/21/17 04:08 O2 Sat by Pulse Oximetry 99 12/21/17 04:08 Oxygen Delivery Oxygen Delivery Room Air Nausea/Vomiting/Diarrhea - MDM Narrative Medical decision making narrative: Acute chronic pancreatitis. The patient improved with her nausea after treatment. The patient still had significant pain. She does not have an acute abdomen on history and examination. Patient will be admitted for pain control and further stabilization. - Differential Diagnosis Likely: traveler's diarrhea, food poisoning, gastroenteritis, dehydration, bowel obstruction - Lab Data Result diagrams: 12/20/17 22:35 12/20/17 22:35 Lab Results 12/20/17 12/20/17 12/20/17 Range/Units 22:35 22:35 22:35 WBC 7.6 (4.3-11.1) K/mcL RBC 3.45 L (3.82-4.97) M/mcL Hgb 9.7 L (11.5-15.4) g/dL Hct 29.3 L (35.3-44.9) % MCV 84.9 (83.0-100.0) fL MCH 28.1 (28.0-33.3) pg MCHC 33.1 (31.6-35.5) g/dL RDW 18.5 H (11.5-14.5) % Plt Count 302 (140-400) K/mcL MPV 8.6 L (9.4-12.4) fL Immature Gran % 0.3 (0-4) % Seg Neutrophils % 68.4 % Lymphocytes % 22.0 % Monocytes % 5.7 % Eosinophils % 2.9 % Basophils % 0.7 % Neutrophils # 5.2 (1.6-8.9) K/mcL Lymphocytes # 1.7 (0.6-4.6) K/mcL Monocytes # 0.4 (0.0-1.3) K/mcL Eosinophils # 0.2 (0.0-0.6) K/mcL Basophils # 0.1 (0.0-0.2) K/mcL Sodium 134 L (136-145) mEq/L Potassium 4.2 (3.5-5.1) mEq/L Chloride 102 (98-107) mEq/L Carbon Dioxide 24 (23-29) mEq/L BUN 8 (6-20) mg/dL Creatinine 1.11 (0.60-1.20) mg/dL Est GFR ( Amer) > 60 (> 60) Est GFR (Non-Af Amer) 52 L (> 60) BUN/Creatinine Ratio 7 (6-26) Glucose 89 (70-105) mg/dL Calculated Osmolality 276 L (280-300) Lactic Acid 1.6 (0.5-2.2) mmol/L Calcium 8.7 (8.6-10.3) mg/dL Total Bilirubin 0.3 (0.3-1.0) mg/dL AST 79 H (13-39) Units/L ALT 64 H (7-52) Units/L Alkaline Phosphatase 93 (34-104) Units/L Serum Total Protein 7.0 (6.4-8.9) g/dL Albumin 4.3 (3.5-5.7) g/dL Globulin 2.7 (2.4-3.5) g/dL Albumin/Globulin Ratio 1.6 (1.1-2.2) Lipase 159 H (11-82) Units/L Urine Color (Yellow) Urine Clarity (Clear) Urine pH (5.0-8.0) pH Units Ur Specific [place] (1.010-1.025) Urine Protein (Neg-Trace) mg/dL Urine Glucose (UA) (Normal) mg/dL Urine Ketones (Negative) mg/dL Urine Blood (Negative) Urine Nitrite (Negative) Urine Bilirubin (Negative) Urine Urobilinogen (Normal) mg/dL Ur Leukocyte Esterase (Negative) Urine Microscopic RBC (0-3) per hpf Ur Squamous Epith Cells (None-Few) per lpf Uric Acid Crystals Urine Bacteria (None-Few) per hpf Ur Culture Indicated? (NO) 12/20/17 Range/Units 23:08 WBC (4.3-11.1) K/mcL RBC (3.82-4.97) M/mcL Hgb (11.5-15.4) g/dL Hct (35.3-44.9) % MCV (83.0-100.0) fL MCH (28.0-33.3) pg MCHC (31.6-35.5) g/dL RDW (11.5-14.5) % Plt Count (140-400) K/mcL MPV (9.4-12.4) fL Immature Gran % (0-4) % Seg Neutrophils % % Lymphocytes % % Monocytes % % Eosinophils % % Basophils % % Neutrophils # (1.6-8.9) K/mcL Lymphocytes # (0.6-4.6) K/mcL Monocytes # (0.0-1.3) K/mcL Eosinophils # (0.0-0.6) K/mcL Basophils # (0.0-0.2) K/mcL Sodium (136-145) mEq/L Potassium (3.5-5.1) mEq/L Chloride (98-107) mEq/L Carbon Dioxide (23-29) mEq/L BUN (6-20) mg/dL Creatinine (0.60-1.20) mg/dL Est GFR ( Amer) (> 60) Est GFR (Non-Af Amer) (> 60) BUN/Creatinine Ratio (6-26) Glucose (70-105) mg/dL Calculated Osmolality (280-300) Lactic Acid (0.5-2.2) mmol/L Calcium (8.6-10.3) mg/dL Total Bilirubin (0.3-1.0) mg/dL AST (13-39) Units/L ALT (7-52) Units/L Alkaline Phosphatase (34-104) Units/L Serum Total Protein (6.4-8.9) g/dL Albumin (3.5-5.7) g/dL Globulin (2.4-3.5) g/dL Albumin/Globulin Ratio (1.1-2.2) Lipase (11-82) Units/L Urine Color Light Yellow (Yellow) Urine Clarity Slightly Cloudy A (Clear) Urine pH 5.0 (5.0-8.0) pH Units Ur Specific [place] 1.015 (1.010-1.025) Urine Protein Negative (Neg-Trace) mg/dL Urine Glucose (UA) Normal (Normal) mg/dL Urine Ketones Negative (Negative) mg/dL Urine Blood Negative (Negative) Urine Nitrite Negative (Negative) Urine Bilirubin Negative (Negative) Urine Urobilinogen Normal (Normal) mg/dL Ur Leukocyte Esterase Negative (Negative) Urine Microscopic RBC 0-3 (0-3) per hpf Ur Squamous Epith Cells Few (None-Few) per lpf Uric Acid Crystals Present Urine Bacteria Few (None-Few) per hpf Ur Culture Indicated? NO (NO)
[2017-12-20] MEDS ORDERED: *HR* Promethazine 25 MG/ML VIAL IVP ONE (22:39)
[2017-12-20 22:46] LABS: Basophils # 0.1 K/mcL (0.0-0.2); Basophils % 0.7 %; Eosinophils # 0.2 K/mcL (0.0-0.6); Eosinophils % 2.9 %; Hematocrit 29.3 % (35.3-44.9); Hemoglobin 9.7 g/dL (11.5-15.4); Immature Granulocytes % 0.3 % (0-4); Lymphocytes # 1.7 K/mcL (0.6-4.6); Mean Corpuscular HGB Conc 33.1 g/dL (31.6-35.5); Mean Corpuscular Hemoglobin 28.1 pg (28.0-33.3); Mean Corpuscular Volume 84.9 fL (83.0-100.0); Mean Platelet Volume 8.6 fL (9.4-12.4); Monocytes # 0.4 K/mcL (0.0-1.3); Monocytes % 5.7 %; Neutrophils # 5.2 K/mcL (1.6-8.9); Platelet Count 302 K/mcL (140-400); Red Blood Count 3.45 M/mcL (3.82-4.97); Red Cell Distribution Width 18.5 % (11.5-14.5); Segmented Neutrophils % 68.4 %
[2017-12-20 23:06] LABS: Alanine Aminotransferase 64 Units/L (7-52); Albumin 4.3 g/dL (3.5-5.7); Albumin/Globulin Ratio 1.6 (1.1-2.2); Alkaline Phosphatase 93 Units/L (34-104); Aspartate Amino Transferase 79 Units/L (13-39); BUN/Creatinine Ratio 7 (6-26); Bilirubin,Total 0.3 mg/dL (0.3-1.0); Blood Urea Nitrogen 8 mg/dL (6-20); Calcium 8.7 mg/dL (8.6-10.3); Carbon Dioxide 24 mEq/L (23-29); Chloride 102 mEq/L (98-107); Globulin 2.7 g/dL (2.4-3.5); Glucose 89 mg/dL (70-105); Lipase 159 Units/L (11-82); Osmolality,Calculated 276 (280-300); Potassium 4.2 mEq/L (3.5-5.1); Sodium 134 mEq/L (136-145); eGFR For African Americans > 60 (> 60); eGFR For Non-African Americans 52 (> 60)
[2017-12-20 23:18] LABS: Bilirubin,Urine Negative (Negative); Blood,Urine Negative (Negative); Glucose,Urine (UA) Normal (Normal); Ketones,Urine Negative (Negative); Leukocyte Esterase,Urine Negative (Negative); Nitrite,Urine Negative (Negative); Protein,Urine Negative (Neg-Trace); Specific Gravity,Urine 1.015 (1.010-1.025); Urobilinogen,Urine Normal (Normal)
[2017-12-20 23:21] LABS: Color,Urine Light Yellow (Yellow)
[2017-12-20 23:28] LABS: Clarity,Urine Slightly Cloudy (Clear)
[2017-12-20 23:30] LABS: Bacteria,Urine Few per hpf (None-Few); Squamous Epithelial Cell,Urine Few per lpf (None-Few); Uric Acid Crystals,Urine Present
[2017-12-20 23:31] LABS: RBC,Urine 0-3 per hpf (0-3)
[2017-12-21] MEDS ORDERED: *HR* Nalbuphine 10 MG/ML AMPUL IVP PRN (01:18)
[2017-12-21] MEDS ORDERED: Naloxone 0.4 MG/ML INJ IVP PRN (01:18)
[2017-12-21] MEDS ORDERED: 0.9 % Sodium Chloride 1,000 ML IVC SCH (01:18)
[2017-12-21] MEDS ORDERED: Ketorolac 30 MG/ML VIAL IVP PRN (01:18)
[2017-12-21] MEDS: *HR* Promethazine 25 MG/ML VIAL IVP PRN ×3 (02:15→15:07)
[2017-12-21] MEDS: *HR* OxyCODONE Immed Rel 5 MG TABLET PO PRN ×2 (06:21→14:27)
[2017-12-21] MEDS ORDERED: tiZANidine 4 MG TABLET PO SCH (09:00)
[2017-12-21] MEDS ORDERED: BuPROPion XL (24 HR) 150 MG TABLET PO SCH (09:00)
[2017-12-21] MEDS ORDERED: Loratadine 10 MG TABLET PO SCH (09:00)
[2017-12-21] MEDS ORDERED: Venlafaxine XR (24 HR) 37.5 MG CAP.ER.24H PO SCH (09:00)
[2017-12-21] MEDS ORDERED: ARIPiprazole 5 MG TABLET PO SCH (09:00)
[2017-12-21 17:08] VITALS: BP 142/76
--- NOTE | 2017-12-21 17:10 | Internal Med History&Physical ---
Date of Encounter: 12/21/17 Time of Encounter: 16:40 Assessment and Plan (1) Gastroenteritis Current visit: No Status: Acute She reports it has essentially resolved and she feels back to baseline. She wishes to be discharged home. (2) Anemia Current visit: No Status: Chronic Anemia testing September 2017 consistent with iron deficiency anemia. Her PCP can address this at follow-up visit. Qualifiers: Anemia type: unspecified type Qualified Code(s): D64.9 - Anemia, unspecified (3) CKD (chronic kidney disease) Current visit: No Status: Chronic As per caddy master Qualifiers: Chronic kidney disease stage: stage 3 (moderate) Qualified Code(s): N18.3 - Chronic kidney disease, stage 3 (moderate) (4) Acute pancreatitis Current visit: Yes Status: Acute Equivocal diagnosis since no imaging done. Lipase was elevated at 159 on admission but possible consequence from acute gastroenteritis.. She is asymptomatic at this time. Qualifiers: Pancreatitis type: other Acute pancreatitis complication: unspecified Qualified Code(s): K85.80 - Other acute pancreatitis without necrosis or infection (5) Exocrine pancreatic insufficiency Current visit: Yes Status: Acute Continue Creon. Internal Medicine - H&P: HPI Chief complaint: Vomiting and diarrhea and abdominal pain Admitted From: Emergency Dept Plans for Post Hospital Care: Home History of present illness: Ms. Goodrich is a 52 year old female who came to emergency room stating she had onset of discomfort approximately 10 AM the day of admission. She took an ibuprofen and lay down without significant improvement. She took Zofran upon arising still felt nauseated. She reports she had H&N episodes of vomiting and proxy 7 episodes of diarrhea. She came to emergency room was evaluated and felt to have acute gastritis pancreatitis per she was [facility]. She states she has had no further vomiting since arriving on MedSurg floor. Her abdominal pain is resolved and she feels back to baseline. She wishes to be discharged home. She was hospitalized April and May 2017 at [facility] and May 2017 at [facility] with similar symptoms. She was hospitalized at [facility] June 2016 and reports EGD showed no significant pathology. No definite etiology of "pancreatitis" has been determined. MRI of the abdomen was done September 2017 which showed no significant pathology. CA 19-9 antigen returned normal at 20 on 09/03/2016. She had MRCP during her May 2017 [facility] stay without acute pathology seen. She has been diagnosed with esophageal motility disorder. She has had cholecystectomy. 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 She reports no alcohol intake since approximately 2013. She had GBS July 2014 with weight decreasing from 270 to 140. Her weight is been stable since August 2016 hospitalization. She had colonoscopy 2014 with polypectomy. Past Med Surg Social Fam HX - Past Medical History Medical history: asthma, COPD, coronary artery disease, GERD, hyperlipidemia, myocardial infarction, renal disease, seizures, TIA Additional medical history: PANCREATITIS. GASTRIC BYPASS Psychiatric history: anxiety, depression - Past Surgical History Surgical History: , cholecystectomy, herniorrhaphy, hysterectomy, bariatric surgery Additional surgical history: GASTRIC BYPASS - Social History Smoking Status: Never smoker Smokeless Tobacco Status: No Alcohol use: none Drug use: none - Family History Mother Family Member Ethnicity: Non- Living Status: Hx Family Cardiac Disorders: No Hx Family Respiratory Disorders: No Hx Family Cancer: Yes (Esophageal) Hx Family GI Disorders: No Hx Family Endocrine Disorder: No Hx Family Neuromuscular Disorders: No Hx Family Neurologic Disorders: No Hx Family HEENT Disorders: No Hx Family Autoimmune Disorders: No Father Family Member Ethnicity: Non- Living Status: Hx Family Cancer: Yes (Prostate) Hx Family Neurologic Disorders: Yes (Alzheimer's disease) Brother Family Member Ethnicity: Non- Living Status: Still Living Sister Family Member Ethnicity: Non- Living Status: Still Living Hx Family Cardiac Disorders: Yes (ND) Hx Family Cancer: Yes (Breast Ca) Internal Medicine - H&P: Meds Tizanidine HCl [Zanaflex] 4 mg PO BID 11/05/15 [History] Venlafaxine XR (24 HR) [Effexor Xr] 75 mg PO DAILY 05/15/17 [History] BuPROPion XL (24 HR) [Wellbutrin Xl] 300 mg PO DAILY 06/10/17 [History] Aripiprazole [Abilify] 20 mg PO DAILY 06/29/17 [History] Cholecalciferol (D-3) [Vitamin D] 5,000 unit PO DAILY 06/29/17 [History] Cyanocobalamin (B-12) [Vitamin B12] 1,000 mcg IM QMONTH 06/29/17 [History] Loratadine [Allergy Relief] 10 mg PO DAILY 10/01/17 [History] Ondansetron [Zofran] 4 mg GTUBE Q8H PRN 10/01/17 [History] Sucralfate [Carafate] 1 gm PO QIDAC #40 tablet 10/09/17 [Rx] Lipase/Protease/Amylase [Roxana Wyatt 6,000 Units Capsule] 1 cap PO QIDAC 10/18/17 [ History] 3 Allergy/AdvReac Type Severity Reaction Status Date / Time acetaminophen [From Fioricet] Allergy Hives Verified 12/20/17 21:50 butalbital [From Fioricet] Allergy Hives Verified 12/20/17 21:50 caffeine [From Fioricet] Allergy Hives Verified 12/20/17 21:50 [place] Allergy Hives Verified 12/20/17 21:50 phenytoin [From Dilantin] Allergy Hives Verified 12/20/17 21:50 methocarbamol [From Robaxin] AdvReac Vomiting Verified 12/20/17 21:50 All Systems PM: A 10-system review of systems was performed and is negative for pertinent findings except as documented above in the HPI. Review of systems: Review of systems from her May 2017 [facility] hospitalization were reviewed and revised as below. Gen.: Her weight has been stable since August 2016 hospitalization at approximately 70 kg. Cardiovascular: She claims she had myocardial infarction in 2008. She had a Regadenoson test 04/29/2016 which showed no EKG or perfusion imaging changes suspicious for ischemia or infarct. She denies hypertension heart failure DVT or pulmonary embolus. She has paroxysmal atrial fibrillation and follows with Dr. Ramirez at [facility]. 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 Respiratory: She smoked minimally is an early adult and has no known chronic lung disease GI: As per history of present illness : She reports right kidney atrophy and chronic kidney disease stage III. She follows with a [place] caddy master. She denies other kidney or bladder disorders. Neurologic: She claims she had a stroke 2004 with right leg weakness. She reports the weakness has completely resolved now. She has had no further large distribution strokes. She states she had childhood seizures Endocrine: She has history of hyperlipidemia. She has history of DM 2 but she does not take medication since she had significant weight loss. She denies thyroid disease Hematology/oncology: She denies blood disorders cancers or anemia Psychiatric: She has anxiety and depression but denies other mental health issues [place] skeletal: She denies arthritis gout or other bone joint or muscle disorders. - Constitutional Vitals: Temp Pulse Resp BP Pulse Ox 98.3 F 69 16 142/73 95 12/21/17 10:00 12/21/17 10:00 12/21/17 10:00 12/21/17 10:00 12/21/17 10:00 Exam: Gen.: She is a well developed well-nourished female resting comfortably in bed who appears in no acute distress HEENT: Head is atraumatic and normocephalic. Eyes: EOMI. There is no scleral icterus. Mouth: Mucosa is moist. Neck: Supple and nontender. There is no thyromegaly or adenopathy noted. Heart: Regular without murmurs gallops or ectopics Lungs: No wheezes or crackles are heard. Abdomen: Soft and nontender. No masses or guarding are noted. Extremities: There is no cyanosis edema or clubbing noted. Dorsalis pedis and posttibial pulses are trace to 1+ palpable bilaterally. Neurologic: Mental status: She is talkative and a good historian. Cranial nerves: Smile is symmetric. Forehead wrinkles bilaterally. Tongue protrudes midline. EOMI. Motor: There is no pronator drift. Cerebellar: Finger to nose is intact bilaterally. Skin: Warm and dry Internal Med - H&P Results - Labs CBC & Chem 7: 12/20/17 22:35 12/20/17 22:35 - Impressions ITS Impressions Chest X-Ray 12/21/17 10:03 IMPRESSION: 1. Right port catheter tip overlies the lower SVC. 2. No acute pulmonary abnormality. D/ / Tommy Alcocer MD / Tommy Alcocer MD Interpreting Provider: Tommy Alcocer MD
--- NOTE | 2017-12-21 17:25 | Discharge Summary ---
Date of Encounter: 12/21/17 Time of Encounter: 16:40 - Discharge Diagnosis (1) Gastroenteritis Priority: Primary Status: Acute (2) Anemia Priority: Secondary Status: Chronic Qualifiers: Anemia type: unspecified type Qualified Code(s): D64.9 - Anemia, unspecified (3) CKD (chronic kidney disease) Priority: Secondary Status: Chronic Qualifiers: Chronic kidney disease stage: stage 3 (moderate) Qualified Code(s): N18.3 - Chronic kidney disease, stage 3 (moderate) (4) Acute pancreatitis Priority: Secondary Status: Acute Qualifiers: Pancreatitis type: other Acute pancreatitis complication: unspecified Qualified Code(s): K85.80 - Other acute pancreatitis without necrosis or infection (5) Exocrine pancreatic insufficiency Priority: Secondary Status: Chronic Hospital course: Ms. Goodrich is a 52 year old female who came to emergency room stating she had onset of discomfort approximately 10 AM the day of admission. She took an ibuprofen and lay down without significant improvement. She took Zofran upon arising but still felt nauseated. She reports she had 8-9 episodes of vomiting and approximately 7 episodes of diarrhea. There was no visible melena or hematochezia or hematemesis. She came to emergency room was evaluated and felt to have acute gastroenteritis and pancreatitis. She was admitted to [facility] for ongoing care needs. Initial orders were written by the emergency room physician. I saw her on December 21 and performed the history and physical. By the time I saw her she stated her pain had resolved and she had no vomiting for approximately 12 hours. She still had some loose stools but stated she wished to be discharged home. She will follow with her PCP within 1 week. She will continue her home medications as previously prescribed. I reviewed past labs including September 2017 anemia testing that was consistent with iron deficiency anemia. Her PCP can address this. - Time Spent with Patient Total time spent providing and/or coordinating discharge services: - Discharge Medications Home Medications: Tizanidine HCl [Zanaflex] 4 mg PO BID 11/05/15 [History] Venlafaxine XR (24 HR) [Effexor Xr] 75 mg PO DAILY 05/15/17 [History] BuPROPion XL (24 HR) [Wellbutrin Xl] 300 mg PO DAILY 06/10/17 [History] Aripiprazole [Abilify] 20 mg PO DAILY 06/29/17 [History] Cholecalciferol (D-3) [Vitamin D] 5,000 unit PO DAILY 06/29/17 [History] Cyanocobalamin (B-12) [Vitamin B12] 1,000 mcg IM QMONTH 06/29/17 [History] Loratadine [Allergy Relief] 10 mg PO DAILY 10/01/17 [History] Ondansetron [Zofran] 4 mg GTUBE Q8H PRN 10/01/17 [History] Sucralfate [Carafate] 1 gm PO QIDAC #40 tablet 10/09/17 [Rx] Lipase/Protease/Amylase [Creon Dr 6,000 Units Capsule] 1 cap PO QIDAC 10/18/17 [ History] Allergies/Adverse Reactions: 3 Allergy/AdvReac Type Severity Reaction Status Date / Time acetaminophen [From Fioricet] Allergy Hives Verified 12/20/17 21:50 butalbital [From Fioricet] Allergy Hives Verified 12/20/17 21:50 caffeine [From Fioricet] Allergy Hives Verified 12/20/17 21:50 [place] Allergy Hives Verified 12/20/17 21:50 phenytoin [From Dilantin] Allergy Hives Verified 12/20/17 21:50 methocarbamol [From Robaxin] AdvReac Vomiting Verified 12/20/17 21:50 Date of admission: 12/21/17 00:22 Primary care physician: Sameera Crow - Constitutional Vitals: Temp Pulse Resp BP Pulse Ox 98.6 F 73 16 142/76 96 12/21/17 14:00 12/21/17 14:00 12/21/17 14:00 12/21/17 14:00 12/21/17 14:00 - Patient Status Disposition: Home, Self-Care Condition: Fair Overall status at discharge: patient is progressing back to baseline - Discharge Instructions Follow Up With: Sameera Crow [Primary Care Provider] - 1 week - Diet and Activity Activity: resume usual activities as tolerated Diet: advance to your usual diet
== END 2017-12-21 18:17 | disposition home or self-care (01) ==
LOC: INPPIK 21:48 → EMEROOPIK 21:48 → INPPIK 12-21 00:40
PROVIDERS: ADMIT Internal Medicine; ATTEND Internal Medicine